=== PATIENT | female | born 1980 | race Two or more races ===

== ENCOUNTER 2018-05-19 16:31 | Inpatient (IN) | payer MEDICAID, MEDICARE ==
[~2018-05-19] VITALS: Ht 172.7 cm; Wt 84.8 kg
[~2018-05-19 16:31] MED LIST: AMLO5TAB10 PO; BUPR150T15 PO; BUPR150T8 PO; CALC667C6 PO; CARV25TA2 PO; CINA30TA2 PO; CLON0.2T PO; DIPH25CA58 PO; DOCU-109 PO; FOLI0.8T3 PO; ONDA8TAB12 PO; ONDA8TAB9 PO; OXYC10TA PO; OXYC1TAB15 PO; OXYC1TAB22 PO; OXYC30TA64 PO; POLY255P11 PO; PRED50TA PO; Polyethylene Glycol 3350 PO; SERT100T PO; SEVE800T9 PO
[2018-05-19] MEDS ORDERED: fentaNYL PF VIAL 100 MCG/2 ML VIAL IV ONE ×2 (17:00→18:15)
[2018-05-19] MEDS ORDERED: ONDANSETRON PF 4 MG/2 ML VIAL. IV ONE (17:00)
--- NOTE | 2018-05-19 17:01 | PHYS DOC ---
Past Medical History Past Medical History: Renal Failure Additional Past Medical Histor: POLYSYCTIC KIDNEY DISEASE, chronic back pain, dialysis Past Surgical History: Cholecystectomy, , Other Additional Past Surgical Histo: DIALYSIS FISTULA R. ARM, BACK Alcohol Use: None Drug Use: Marijuana Adult General Chief Complaint Chief Complaint: FLANK PAIN [facility] HPI Patient is a 37 year old female with history of end-stage renal disease on dialysis Monday presenting today complaining of 9 out of 10 bilateral flank pain that has been going on for week with nausea and vomiting. Patient denies any fever. She states she feels her kidneys are inflamed. She states she has missed dialysis for the last 1 week. She states she is from [facility]. Patient states occasionally she is able to produce urine. Review of Systems Review of Systems Constitutional: Denies fever or chills [] Eyes: Denies change in visual acuity, redness, or eye pain [] HENT: Denies nasal congestion or sore throat [] Respiratory: Denies cough or shortness of breath [] Cardiovascular: No additional information not addressed in HPI [] GI: Reports nausea and vomiting. Denies abdominal pain, bloody stools or diarrhea [] : Reports bilateral flank pain. Denies dysuria or hematuria [] Musculoskeletal: Denies back pain or joint pain [] Integument: Denies rash or skin lesions [] Neurologic: Denies headache, focal weakness or sensory changes [] All other systems were reviewed and found to be within normal limits, except as documented in this note. Current Medications Current Medications Current Medications Medications (Trade) Dose Ordered Sig/Masood Start Time Stop Time Status Last Admin Dose Admin Fentanyl Citrate (Fentanyl 2ml Vial) 50 mcg 1X ONCE 05/19/18 18:15 05/19/18 18:16 DC Ondansetron HCl (Zofran) 4 mg 1X ONCE 05/19/18 17:00 05/19/18 17:01 DC 05/19/18 17:16 4 MG Allergies Allergies Allergies Coded Allergies Type Severity Reaction Last Updated Verified Cephalosporins Allergy Intermediate 02/08/13 Yes cephalexin Allergy Intermediate 04/28/18 Yes iron Allergy Intermediate 02/08/13 Yes tramadol Allergy Intermediate 02/08/13 Yes Physical Exam Physical Exam Constitutional: Well developed, well nourished, no acute distress, non-toxic appearance. [] HENT: Normocephalic, atraumatic, bilateral external ears normal, oropharynx moist, no oral exudates, nose normal. [] Eyes: PERRLA, EOMI, conjunctiva normal, no discharge. [] Neck: Normal range of motion, no tenderness, supple, no stridor. [] Cardiovascular:Heart rate regular rhythm, no murmur [] Lungs & Thorax: Bilateral breath sounds clear to auscultation [] Abdomen: Bowel sounds normal, soft, no tenderness, no masses, no pulsatile masses. [] Skin: Warm, dry, no erythema, no rash. Right upper extremity with dialysis fistula with positive bruit and thrill Back: No tenderness, no CVA tenderness. [] Extremities: No tenderness, no cyanosis, no clubbing, ROM intact, no edema. [] Neurologic: Alert and oriented X 3, normal motor function, normal sensory function, no focal deficits noted. [] Psychologic: Affect normal, judgement normal, mood normal. [] Current Patient Data Vital Signs Vital Signs Date Time Temp Pulse Resp B/P (MAP) Pulse Ox O2 Delivery O2 Flow Rate FiO2 05/19/18 17:15 75 17 172/84 (113) 98 Room Air 05/19/18 16:31 98.2 98.2 Lab Values Laboratory Tests Test 05/19/18 17:00 05/19/18 17:02 White Blood Count 5.5 x10^3/uL (4.0-11.0) Red Blood Count 1.98 x10^6/uL (3.50-5.40) L Hemoglobin 6.2 g/dL (12.0-15.5) *L Hematocrit 18.8 % (36.0-47.0) *L Mean Corpuscular Volume 95 fL (79-100) Mean Corpuscular Hemoglobin 31 pg (25-35) Mean Corpuscular Hemoglobin Concent 33 g/dL (31-37) Red Cell Distribution Width 16.8 % (11.5-14.5) H Platelet Count 127 x10^3/uL (140-400) L Neutrophils (%) (Auto) 69 % (31-73) Lymphocytes (%) (Auto) 19 % (24-48) L Monocytes (%) (Auto) 6 % (0-9) Eosinophils (%) (Auto) 5 % (0-3) H Basophils (%) (Auto) 1 % (0-3) Neutrophils # (Auto) 3.8 x10^3uL (1.8-7.7) Lymphocytes # (Auto) 1.1 x10^3/uL (1.0-4.8) Monocytes # (Auto) 0.3 x10^3/uL (0.0-1.1) Eosinophils # (Auto) 0.3 x10^3/uL (0.0-0.7) Basophils # (Auto) 0.0 x10^3/uL (0.0-0.2) Sodium Level 138 mmol/L (136-145) Potassium Level 5.6 mmol/L (3.5-5.1) H Chloride Level 97 mmol/L (98-107) L Carbon Dioxide Level 22 mmol/L (21-32) Anion Gap 19 (6-14) H Blood Urea Nitrogen 116 mg/dL (7-20) H Creatinine 21.0 mg/dL (0.6-1.0) H Estimated GFR (Cockcroft-Gault) 1.9 BUN/Creatinine Ratio 6 (6-20) Glucose Level 92 mg/dL (70-99) Calcium Level 7.4 mg/dL (8.5-10.1) L Total Bilirubin 0.5 mg/dL (0.2-1.0) Aspartate Amino Transferase (AST) 11 U/L (15-37) L Alanine Aminotransferase (ALT) 7 U/L (14-59) L Alkaline Phosphatase 136 U/L (46-116) H Total Protein 7.6 g/dL (6.4-8.2) Albumin 2.8 g/dL (3.4-5.0) L Albumin/Globulin Ratio 0.6 (1.0-1.7) L Lipase 54 U/L (73-393) L Urine Collection Type Unknown Urine Color Yellow Urine Clarity Cloudy Urine pH 8.0 Urine Specific [place] 1.010 Urine Protein 100 mg/dL (NEG-TRACE) Urine Glucose (UA) 100 mg/dL (NEG) Urine Ketones (Stick) Negative mg/dL (NEG) Urine Blood Large (NEG) Urine Nitrite Negative (NEG) Urine Bilirubin Negative (NEG) Urine Urobilinogen Dipstick 0.2 mg/dL (0.2 mg/dL) Urine Leukocyte Esterase Trace (NEG) Urine RBC >40 /HPF (0-2) Urine WBC 1-4 /HPF (0-4) Urine Squamous Epithelial Cells Many /LPF Urine Bacteria Few /HPF (0-FEW) Laboratory Tests 05/19/18 17:00 Laboratory Tests 05/19/18 17:00 EKG EKG [] Radiology/Procedures Radiology/Procedures [] Course & Med Decision Making Course & Med Decision Making Pertinent Labs and Imaging studies reviewed. (See chart for details) This is a 37-year-old. Presenting to the ED today with bilateral flank pain, nausea and vomiting, symptoms for 1 week. Patient is on dialysis, has missed dialysis for one week. CBC with hemoglobin of 6.2, hematocrit 18.8, CMP with potassium 5.6-EKG pending , BUN 116 and creatinine 21.0. Blood transfusion was ordered. Patient be admitted under Dr. Kurtz Spoke with Dr. Alfonso he requested one unit of blood and stated patient does not need emergency dialysis Dragon Disclaimer Dragon Disclaimer This electronic medical record was generated, in whole or in part, using a voice recognition dictation system. Departure Departure Impression: Primary Impression: ESRD (end stage renal disease) Additional Impressions: Hyperkalemia Anemia Disposition: ADMITTED INPATIENT Condition: STABLE Referrals: NO PCP (PCP) Problem Qualifiers Additional Impressions: Anemia Anemia type: unspecified type Qualified Codes: D64.9 - Anemia, unspecified FAITH HURD APRN May 19, 2018 17:01
[2018-05-19 17:31] LABS: BASO % 1 % (0-3); EOS # 0.3 x10^3/uL (0.0-0.7); EOS % 5 % (0-3); LYMPH # 1.1 x10^3/uL (1.0-4.8); LYMPH % 19 % (24-48); MEAN CORPUSCULAR HEMOGLOBIN 31 pg (25-35); MEAN CORPUSCULAR HGB CONC 33 g/dL (31-37); MEAN CORPUSCULAR VOLUME 95 fL (79-100); MONO # 0.3 x10^3/uL (0.0-1.1); MONO % 6 % (0-9); NEUT # 3.8 x10^3uL (1.8-7.7); NEUT % 69 % (31-73); PLATELET COUNT 127 x10^3/uL (140-400); RED BLOOD COUNT 1.98 x10^6/uL (3.50-5.40); RED CELL DISTRIBUTION WIDTH 16.8 % (11.5-14.5); WHITE BLOOD COUNT 5.5 x10^3/uL (4.0-11.0)
[2018-05-19 17:33] LABS: ALBUMIN 2.8 g/dL (3.4-5.0); ALBUMIN/GLOBULIN RATIO 0.6 (1.0-1.7); CALCIUM 7.4 mg/dL (8.5-10.1); POTASSIUM 5.6 mmol/L (3.5-5.1); TOTAL BILIRUBIN 0.5 mg/dL (0.2-1.0); TOTAL PROTEIN 7.6 g/dL (6.4-8.2)
[2018-05-19 17:36] LABS: GFR 1.9
[2018-05-19 17:49] LABS: HEMATOCRIT 18.8 % (36.0-47.0); HEMOGLOBIN 6.2 g/dL (12.0-15.5)
[2018-05-19] MEDS ORDERED: SODIUM POLYSTYRENE SULFONATE 15 GM/60 ML ORAL.SUSP. PO ONE (18:30)
[2018-05-19 19:00] VITALS: BP 147/82
[2018-05-19 19:05] LABS: BILIRUBIN,URINE NEGATIVE (NEG); CLARITY,URINE CLOUDY; COLOR,URINE YELLOW; NITRITE,URINE NEGATIVE (NEG); PROTEIN,URINE 100 mg/dL (NEG-TRACE); UROBILINOGEN,URINE 0.2 mg/dL (0.2 mg/dL)
--- NOTE | 2018-05-19 19:10 | RAD ---
CT of the abdomen and pelvis without contrast HISTORY: Flank pain worse on right. End-stage renal disease CT scan of the abdomen and pelvis was done without contrast. There is a trace of pleural effusion on each side. There is mild atelectasis in the lung bases. There is a cyst in the liver. There are polycystic kidneys with high and low density cysts in both kidneys. A dominant mass is not definitively identified include. Spleen and adrenal glands are normal. Pancreas is not optimally evaluated without contrast but is not definitively abnormal. Common duct is dilated without change from an old study. The patient had a cholecystectomy. Diffuse edema in the anterior abdominal wall. No bowel obstruction. There is increased stool in the colon with possible fecal impaction the rectum. Uterus and ovaries are normal. Appendix is normal. There is mild wall thickening in the colon, a mild colitis is possible or mild edema from anasarca. There is no small bowel obstruction. Retroperitoneal lymph nodes are more prominent than the old exam, etiology is nonspecific. There is a large calcific mass behind the hip on the right which was not present on the old study, tumoral calcinosis is possible. IMPRESSION: 1. Polycystic kidney disease with multiple high density and low-density cysts in both kidneys, renal mass would be difficult to exclude. 2. Retroperitoneal adenopathy increased since the prior study. 3. Increased stool in colon and rectum with fecal impaction at the rectum. 4. Mild wall thickening in the colon possible mild colitis.. 5. Edema suggesting anasarca in the abdominal wall. 6. Calcified mass behind the right hip. 7. Dilated common duct without change from the old study. Electronically signed by: Trenton Brunner MD (05/19/2018 7:06 PM) [id number]
[2018-05-19 19:13] LABS: SQUAMOUS EPITHELIAL CELL,UR MANY /LPF
[2018-05-19 19:14] LABS: BACTERIA,URINE FEW /HPF (0-FEW); RBC,URINE >40 /HPF (0-2)
[2018-05-19] MEDS ORDERED: ONDANSETRON PF 4 MG/2 ML VIAL. IV PRN (19:45)
[2018-05-19] MEDS ORDERED: ACETAMINOPHEN 325 MG TABLET. PO PRN (19:45)
[2018-05-19] MEDS ORDERED: oxyCODONE/APAP 10/325 1 TAB TABLET PO PRN (21:45)
[2018-05-19] MEDS ORDERED: diphenhydrAMINE HCL 25 MG CAPSULE PO PRN (21:45)
[2018-05-19] MEDS: ONDANSETRON ODT 4 MG TAB.RAPDIS. PO SCH (22:00)
[2018-05-19] MEDS: fentaNYL PF VIAL 100 MCG/2 ML VIAL IV PRN (22:12)
[2018-05-19] MEDS ORDERED: BISACODYL 5 MG TABLET.DR. PO PRN (22:15)
[2018-05-19] MEDS ORDERED: SODIUM PHOSPHATES 19/7GM 133 ML ENEMA. PR PRN (22:15)
[2018-05-19 22:49] VITALS: BP 140/78
--- NOTE | 2018-05-19 22:52 | PDOC1 ---
History and Physical Date of Admission Date of Admission DATE: 05/19/18 TIME: 22:47 Identification/Chief Complaint Chief Complaint back pain, flank pain Source Source: Chart review, Patient History of Present Illness History of Present Illness Ms. Hawkins, is a 37 year old female admit from the ER with acute abd and flank pain, and pain to back. She has a history of end-stage renal disease on dialysis 11/13 bilateral flank pain that has been going on for week with nausea and vomiting. Poor po intake for days, could not take her home dose of oxycodoen, which she says is now 30mg, and her PCP, Dr. Mckinney, has referred her to pain mgmnt. Patient denies any fever. She states she feels her kidneys are inflamed. I reviewed CT results with her and she says she stooled since CT was taken Patient states occasionally she is able to produce urine. NO HD for one week, Past Medical History Cardiovascular: HTN Pulmonary: No pertinent hx GI: No pertinent hx Heme/Onc: No pertinent hx Hepatobiliary: No pertinent hx Renal/: Chronic renal failure Past Surgical History Past Surgical History: No pertinent history Family History Family History: No Significant, Family History Unknown Social History Smoke: No ALCOHOL: none Drugs: None Current Problem List Problem List Problems Medical Problems: (1) Anemia Status: Acute (2) Hyperkalemia Status: Acute Current Medications Current Medications Current Medications Fentanyl Citrate (Fentanyl 2ml Vial) 50 mcg 1X ONCE IV Last administered on at 17:18; Start 05/19/18 at 17:00; Stop 05/19/18 at 17:01; Status DC Ondansetron HCl (Zofran) 4 mg 1X ONCE IV Last administered on 05/19/18at 17:16 ; Start 05/19/18 at 17:00; Stop 05/19/18 at 17:01; Status DC Fentanyl Citrate (Fentanyl 2ml Vial) 50 mcg 1X ONCE IV Last administered on at 20:17; Start 05/19/18 at 18:15; Stop 05/19/18 at 18:16; Status DC Sodium Polystyrene Sulfonate (Kayexalate) 30 gm 1X ONCE PO ; Start 05/19/18 at 18:30; Stop 05/19/18 at 18:31; Status DC Ondansetron HCl (Zofran) 4 mg PRN Q8HRS PRN IV NAUSEA/VOMITING; Start 05/19/18 at 19:45; Stop 05/20/18 at 19:44 Fentanyl Citrate (Fentanyl 2ml Vial) 50 mcg PRN Q1HR PRN IV PAIN Last administered on 05/19/18at 22:12; Start 05/19/18 at 19:45; Stop 05/20/18 at 19:44 Acetaminophen (Tylenol) 650 mg PRN Q4HRS PRN PO FEVER; Start 05/19/18 at 19:45 ; Stop 05/20/18 at 19:44 Amlodipine Besylate (Norvasc) 5 mg BID PO ; Start 05/19/18 at 22:00 Bupropion HCl (Wellbutrin Sr) 150 mg DAILY PO ; Start 05/20/18 at 09:00 Cinacalcet (Sensipar) 30 mg DAILY PO ; Start 05/20/18 at 09:00 Clonidine HCl (Catapres) 0.2 mg BID PO ; Start 05/19/18 at 22:00 Diphenhydramine HCl (Benadryl) 25 mg PRN QHS PRN PO ALLERGIES; Start 05/19/18 at 21:45 Docusate Sodium (Colace) 100 mg DAILY PO ; Start 05/20/18 at 09:00 Oxycodone/ Acetaminophen (Percocet 10/325) 2 tab PRN QID PRN PO SEVERE PAIN; Start 05/19/18 at 21:45; Stop 05/19/18 at 22:31; Status DC Sevelamer Carbonate (Renvela) 800 mg QIDACHS PO ; Start 05/20/18 at 07:30 Carvedilol (Coreg) 25 mg BIDWMEALS PO ; Start 05/19/18 at 22:00 Ondansetron HCl (Zofran Odt) 8 mg Q8HRS PO ; Start 05/19/18 at 22:00 Polyethylene Glycol (miraLAX PACKET) 17 gm PRN DAILY PRN PO CONSTIPATION 1ST CHOICE; Start 05/20/18 at 09:00; Stop 05/20/18 at 09:00; Status DC Polyethylene Glycol (miraLAX PACKET) 17 gm BID PO ; Start 05/20/18 at 09:00 Senna/Docusate Sodium (Senna Plus) 2 tab DAILY PO ; Start 05/20/18 at 09:00 Sodium Monofluorophosphate (Fleet Adult) 133 ml PRN DAILY PRN [place] CONSTIPATION 2ND CHOICE; Start 05/19/18 at 22:15 Bisacodyl (Dulcolax Tab) 5 mg PRN DAILY PRN PO CONSTIPATION 1ST CHOICE; Start 05/19/18 at 22:15 Oxycodone/ Acetaminophen (Percocet 10/325) 1 tab PRN QID PRN PO SEVERE PAIN; Start 05/19/18 at 22:45 Active Scripts Active Percocet 10-325 Mg Tablet (Oxycodone/Acetaminophen) 1 Each Tablet 2 Tab PO QID PRN Oxycodone Hcl Immed.release (Oxycodone Hcl) 10 Mg Tablet 1 Tab PO BID Oxycodone Hcl Immed.release (Oxycodone Hcl) 10 Mg Tablet 1 Tab PO BID Zofran Odt (Ondansetron) 8 Mg Tab.rapdis 1 Tab PO Q8HRS Colace (Docusate Sodium) 100 Mg Capsule 100 Mg PO DAILY Reported Polyethylene Glycol 3350 255 Gm Powder 17 Gm PO PRN Benadryl (Diphenhydramine Hcl) 25 Mg Capsule 1 Cap PO QHS PRN Sensipar (Cinacalcet Hcl) 30 Mg Tablet 1 Tab PO DAILY Zofran (Ondansetron Hcl) 8 Mg Tablet 8 Mg PO PRN Renvela (Sevelamer Carbonate) 800 Mg Tablet 4 Tab PO PRN PRN Wellbutrin Xl (Bupropion Hcl) 150 Mg Tab.er.24h 1 Tab PO DAILY Clonidine Hcl 0.2 Mg Tablet 0.2 Mg PO BID Amlodipine Besylate 5 Mg Tablet 5 Mg PO BID Carvedilol 25 Mg Tablet 25 Mg PO BIDWMEALS Renvela (Sevelamer Carbonate) 800 Mg Tablet 800 Mg PO QID Wellbutrin Sr (Bupropion Hcl) 150 Mg Tablet.er 150 Mg PO DAILY Allergies Allergies: Coded Allergies: Cephalosporins (Verified Allergy, Intermediate, 02/08/13) cephalexin (Verified Allergy, Intermediate, 04/28/18) iron (Verified Allergy, Intermediate, 02/08/13) IV Iron tramadol (Verified Allergy, Intermediate, 02/08/13) ROS General: YES: Chills, Fatigue, Malaise PSYCHOLOGICAL ROS: YES: Irritablity, Sleep disturbances Eyes: No Blurry vision, No Decreased vision, No Double vision, No Dry eyes, No Excessive tearing, No Eye Pain, No Itchy Eyes, No Loss of vision, No Photophobia , No Scotomata, No Uses contacts, No Uses glasses, No Other HEENT: No: Heacaches, Visual Changes, Hearing change, Nasal congestion, Nasal discharge, Oral lesions, Sinus pain, Sore Throat, Epistaxis, Sneezing, Snoring, Tinnitus, Vertigo, Vocal changes, Other ENDOCRINE: No: Breast Changes, Galactorrhea, Hair Pattern Changes, Hot Flashes , Malaise/lethargy, Mood Swings, Palpitations, Polydipsia/polyuria, Skin Changes , Temperature Intolerance, Unexpected Weight Changes, Other Gastrointestinal: Yes Abdominal Pain; No Nausea, No Vomiting, No Diarrhea, No Constipation, No Melena, No Hematochezia, No Other Genitourinary: YES Pain, YES Flank Pain; No Dysuria, No Frequency, No Incontinence, No Hematuria, No Retention, No Discharge, No Urgency, No Other, No , No , No , No , No , No , No Musculoskeletal: Yes Joint Pain; No Gait Disturbance, No Joint Stiffness, No Joint Swelling, No Muscle Pain, No Muscular Weakness, No Pain In:, No Swelling In:, No Other Neurological: Yes Other (explains "like shots of darkness before my eyes" sudden events, today only); No Behavorial Changes, No Bowel/Bladder ControlChng, No Confusion, No Dizziness, No Gait Disturbance, No Headaches, No Impaired Coord/balance, No Memory Loss, No Numbness/Tingling, No Seizures, No Speech Problems, No Tremors, No Visual Changes, No Weakness Skin: No Dry Skin, No Eczema, No Hair Changes, No Lumps, No Mole Changes, No Mottling, No Nail Changes, No Pruritus, No Rash, No Skin Lesion Changes, No Other, No Acne Physical Exam General: Alert, Cooperative, mild distress HEENT: PERRLA, Mucous membr. moist/pink Lungs: Clear to auscultation, Normal air movement Heart: no gallops, no murmurs Abdomen: Soft Rectal Exam: not examined Extremities: No clubbing, No edema Skin: No rashes, No significant lesion Neuro: Normal gait, Normal speech, Normal tone Vitals Vitals Vital Signs Date Time Temp Pulse Resp B/P (MAP) Pulse Ox O2 Delivery O2 Flow Rate FiO2 05/19/18 18:32 70 12 157/72 (100) 97 Room Air 05/19/18 16:31 98.2 98.2 Labs Labs Laboratory Tests Test 05/19/18 17:00 05/19/18 17:02 White Blood Count 5.5 x10^3/uL (4.0-11.0) Red Blood Count 1.98 x10^6/uL (3.50-5.40) Hemoglobin 6.2 g/dL (12.0-15.5) Hematocrit 18.8 % (36.0-47.0) Mean Corpuscular Volume 95 fL (79-100) Mean Corpuscular Hemoglobin 31 pg (25-35) Mean Corpuscular Hemoglobin Concent 33 g/dL (31-37) Red Cell Distribution Width 16.8 % (11.5-14.5) Platelet Count 127 x10^3/uL (140-400) Neutrophils (%) (Auto) 69 % (31-73) Lymphocytes (%) (Auto) 19 % (24-48) Monocytes (%) (Auto) 6 % (0-9) Eosinophils (%) (Auto) 5 % (0-3) Basophils (%) (Auto) 1 % (0-3) Neutrophils # (Auto) 3.8 x10^3uL (1.8-7.7) Lymphocytes # (Auto) 1.1 x10^3/uL (1.0-4.8) Monocytes # (Auto) 0.3 x10^3/uL (0.0-1.1) Eosinophils # (Auto) 0.3 x10^3/uL (0.0-0.7) Basophils # (Auto) 0.0 x10^3/uL (0.0-0.2) Sodium Level 138 mmol/L (136-145) Potassium Level 5.6 mmol/L (3.5-5.1) Chloride Level 97 mmol/L (98-107) Carbon Dioxide Level 22 mmol/L (21-32) Anion Gap 19 (6-14) Blood Urea Nitrogen 116 mg/dL (7-20) Creatinine 21.0 mg/dL (0.6-1.0) Estimated GFR (Cockcroft-Gault) 1.9 BUN/Creatinine Ratio 6 (6-20) Glucose Level 92 mg/dL (70-99) Calcium Level 7.4 mg/dL (8.5-10.1) Total Bilirubin 0.5 mg/dL (0.2-1.0) Aspartate Amino Transf (AST/SGOT) 11 U/L (15-37) Alanine Aminotransferase (ALT/SGPT) 7 U/L (14-59) Alkaline Phosphatase 136 U/L (46-116) Total Protein 7.6 g/dL (6.4-8.2) Albumin 2.8 g/dL (3.4-5.0) Albumin/Globulin Ratio 0.6 (1.0-1.7) Lipase 54 U/L (73-393) Urine Collection Type Unknown Urine Color Yellow Urine Clarity Cloudy Urine pH 8.0 Urine Specific [place] 1.010 Urine Protein 100 mg/dL (NEG-TRACE) Urine Glucose (UA) 100 mg/dL (NEG) Urine Ketones (Stick) Negative mg/dL (NEG) Urine Blood Large (NEG) Urine Nitrite Negative (NEG) Urine Bilirubin Negative (NEG) Urine Urobilinogen Dipstick 0.2 mg/dL (0.2 mg/dL) Urine Leukocyte Esterase Trace (NEG) Urine RBC >40 /HPF (0-2) Urine WBC 1-4 /HPF (0-4) Urine Squamous Epithelial Cells Many /LPF Urine Bacteria Few /HPF (0-FEW) Laboratory Tests Test 05/19/18 17:00 05/19/18 17:02 White Blood Count 5.5 x10^3/uL (4.0-11.0) Red Blood Count 1.98 x10^6/uL (3.50-5.40) Hemoglobin 6.2 g/dL (12.0-15.5) Hematocrit 18.8 % (36.0-47.0) Mean Corpuscular Volume 95 fL (79-100) Mean Corpuscular Hemoglobin 31 pg (25-35) Mean Corpuscular Hemoglobin Concent 33 g/dL (31-37) Red Cell Distribution Width 16.8 % (11.5-14.5) Platelet Count 127 x10^3/uL (140-400) Neutrophils (%) (Auto) 69 % (31-73) Lymphocytes (%) (Auto) 19 % (24-48) Monocytes (%) (Auto) 6 % (0-9) Eosinophils (%) (Auto) 5 % (0-3) Basophils (%) (Auto) 1 % (0-3) Neutrophils # (Auto) 3.8 x10^3uL (1.8-7.7) Lymphocytes # (Auto) 1.1 x10^3/uL (1.0-4.8) Monocytes # (Auto) 0.3 x10^3/uL (0.0-1.1) Eosinophils # (Auto) 0.3 x10^3/uL (0.0-0.7) Basophils # (Auto) 0.0 x10^3/uL (0.0-0.2) Sodium Level 138 mmol/L (136-145) Potassium Level 5.6 mmol/L (3.5-5.1) Chloride Level 97 mmol/L (98-107) Carbon Dioxide Level 22 mmol/L (21-32) Anion Gap 19 (6-14) Blood Urea Nitrogen 116 mg/dL (7-20) Creatinine 21.0 mg/dL (0.6-1.0) Estimated GFR (Cockcroft-Gault) 1.9 BUN/Creatinine Ratio 6 (6-20) Glucose Level 92 mg/dL (70-99) Calcium Level 7.4 mg/dL (8.5-10.1) Total Bilirubin 0.5 mg/dL (0.2-1.0) Aspartate Amino Transf (AST/SGOT) 11 U/L (15-37) Alanine Aminotransferase (ALT/SGPT) 7 U/L (14-59) Alkaline Phosphatase 136 U/L (46-116) Total Protein 7.6 g/dL (6.4-8.2) Albumin 2.8 g/dL (3.4-5.0) Albumin/Globulin Ratio 0.6 (1.0-1.7) Lipase 54 U/L (73-393) Urine Collection Type Unknown Urine Color Yellow Urine Clarity Cloudy Urine pH 8.0 Urine Specific [place] 1.010 Urine Protein 100 mg/dL (NEG-TRACE) Urine Glucose (UA) 100 mg/dL (NEG) Urine Ketones (Stick) Negative mg/dL (NEG) Urine Blood Large (NEG) Urine Nitrite Negative (NEG) Urine Bilirubin Negative (NEG) Urine Urobilinogen Dipstick 0.2 mg/dL (0.2 mg/dL) Urine Leukocyte Esterase Trace (NEG) Urine RBC >40 /HPF (0-2) Urine WBC 1-4 /HPF (0-4) Urine Squamous Epithelial Cells Many /LPF Urine Bacteria Few /HPF (0-FEW) VTE Prophylaxis Ordered VTE Prophylaxis Devices: No VTE Pharmacological Prophylaxi: Yes Assessment/Plan Assessment/Plan acute on chronic back pain uremia, azotemia ESRD, non-compliance > 1 week, has been traveling to [place], mo obesity, BMI 32, w. severe malnutrition narcotic tolerance, polycystic ovary disease constipation with mild colitis that may be secondary PAPI COLON MD May 19, 2018 22:52
[2018-05-19 23:03] VITALS: BP 141/79
[2018-05-19] MEDS: oxyCODONE/APAP 10/325 1 TAB TABLET PO PRN (23:09)
[2018-05-19] MEDS: amLODIPine BESYLATE 5 MG TABLET PO SCH (23:10)
[2018-05-19] MEDS: CARVEDILOL 12.5 MG TABLET. PO SCH (23:11)
[2018-05-19] MEDS: cloNIDine HCL 0.2 MG TABLET PO SCH (23:11)
[2018-05-20] VITALS (10 sets, daily range): BP systolic 105–161; BP diastolic 59–87
[2018-05-20] MEDS: fentaNYL PF VIAL 100 MCG/2 ML VIAL IV PRN ×10 (01:58→23:55)
[2018-05-20 03:36] LABS: CALCIUM 7.2 mg/dL (8.5-10.1); POTASSIUM 5.9 mmol/L (3.5-5.1)
[2018-05-20 03:46] LABS: CREATININE 20.7 mg/dL (0.6-1.0); GFR 1.9
[2018-05-20] MEDS: ONDANSETRON ODT 4 MG TAB.RAPDIS. PO SCH ×3 (06:27→21:44)
[2018-05-20] MEDS: SEVELAMER CARBONATE 800 MG TABLET. PO SCH ×4 (07:30→21:17)
[2018-05-20] MEDS ORDERED: IV NORMAL SALINE 1000ML BAG 1,000 ML IV PRN ×2 (07:55)
[2018-05-20] MEDS ORDERED: diphenhydrAMINE 50 MG/ML VIAL IV PRN (08:00)
[2018-05-20] MEDS ORDERED: DIALYSIS PATIENT. MC PRN ×2 (08:00)
--- NOTE | 2018-05-20 08:35 | NUR ---
Pt transported to dialysis by bed. This RN picked up one unit of PRBCs from Blood Bank and gave to carmen Loyola RN for administration during HD. Blood verified at bedside with KATT Loyola.
[2018-05-20] MEDS ORDERED: POLYETHYLENE GLYCOL 3350 17 GM PACKET. PO PRN (09:00)
[2018-05-20] MEDS ORDERED: INSULIN REGULAR 100 UNIT/ML 3ML VIAL. IV ONE (09:45)
[2018-05-20] MEDS ORDERED: SODIUM POLYSTYRENE SULFONATE 15 GM/60 ML ORAL.SUSP. PO ONE (09:45)
[2018-05-20] MEDS ORDERED: DEXTROSE 50% 25 GM / 50ML DISP.SYRIN. IV ONE (09:45)
[2018-05-20] MEDS ORDERED: CALCIUM GLUCONATE 1,000 MG/10 ML VIAL. IVP ONE (09:45)
[2018-05-20] MEDS: DOCUSATE SODIUM 100 MG CAPSULE. PO SCH (11:08)
[2018-05-20] MEDS: POLYETHYLENE GLYCOL 3350 17 GM PACKET. PO SCH ×2 (11:08→21:00)
[2018-05-20] MEDS: SENNOSIDES/DOCUSATE 8.6/50MG TABLET. PO SCH (11:09)
--- NOTE | 2018-05-20 11:10 | NUR ---
Pt just returned from dialysis, report received from KATT Loyola. Pt refused x1 orders entered by Dr Sadler: insulin, dextrose, calcium gluconate and kayexalate. Pt stated she did not thing these medications were necessary since she just dialysis and she did not want to "over do it."
[2018-05-20] MEDS: cloNIDine HCL 0.2 MG TABLET PO SCH ×2 (11:18→21:18)
[2018-05-20] MEDS: amLODIPine BESYLATE 5 MG TABLET PO SCH ×2 (11:18→21:18)
[2018-05-20] MEDS: buPROPion SR 150 MG TABLET.SA PO SCH (11:18)
[2018-05-20] MEDS: CARVEDILOL 12.5 MG TABLET. PO SCH ×2 (11:18→16:41)
[2018-05-20] MEDS: CINACALCET HCL 30 MG TABLET PO SCH (11:18)
--- NOTE | 2018-05-20 11:29 | PDOC2 ---
CONSULT Date of Consult Date of Consult DATE: 05/20/18 TIME: 11:22 History of Present Illness Reason for Visit: THIS IS A 37 YR OLD ON HD FOR ABOUT 6 YEARS NOW. 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 SHE PRESENTED TO THE ER WITH ABD AND FLANK PAIN. IMAGING IS NEG FOR ANYTHING ACUTE. SHE IS ON OP HD ON MWF BUT HAS NOT BEEN TO HER DIALYSIS UNIT IN OVER A WEEK ON ADMIT SHE IS NOTED TO HAVE A HGB OF 6.2 AND K OF 5.9. SHE ALSO COMPLAINED OF GENERALIZED WEAKNESS. FLANK PAIN WAS SUDDEN WITH SOME RADIATION TO THE FRONT. SHE HAS HAD THESE TYPES OF PAIN IN THE PAST AND MOST LIKELY DUE TO PKD RELATED CYST BURDEN. LABS ARE OTHERWISE C/W ESRD Past Medical History Cardiovascular: HTN Pulmonary: No pertinent hx GI: No pertinent hx, Constipation, Other (PKD) Heme/Onc: Anemia NOS Hepatobiliary: No pertinent hx Psych: Depression Musculoskeletal: low back pain Renal/: Chronic renal failure Endocrine: Hyperparathyroidism Past Surgical History Past Surgical History RIGHT ARM AVF Past Surgical History: No pertinent history Family History Family History: No Significant, Family History Unknown Social History No ALCOHOL: none Drugs: None Current Problem List Problem List Problems Medical Problems: (1) Anemia Status: Acute (2) Hyperkalemia Status: Acute Current Medications Current Medications Current Medications Fentanyl Citrate (Fentanyl 2ml Vial) 50 mcg 1X ONCE IV Last administered on at 17:18; Start 05/19/18 at 17:00; Stop 05/19/18 at 17:01; Status DC Ondansetron HCl (Zofran) 4 mg 1X ONCE IV Last administered on 05/19/18at 17:16 ; Start 05/19/18 at 17:00; Stop 05/19/18 at 17:01; Status DC Fentanyl Citrate (Fentanyl 2ml Vial) 50 mcg 1X ONCE IV Last administered on at 20:17; Start 05/19/18 at 18:15; Stop 05/19/18 at 18:16; Status DC Sodium Polystyrene Sulfonate (Kayexalate) 30 gm 1X ONCE PO ; Start 05/19/18 at 18:30; Stop 05/19/18 at 18:31; Status DC Ondansetron HCl (Zofran) 4 mg PRN Q8HRS PRN IV NAUSEA/VOMITING Last administered on 05/19/18at 23:11; Start 05/19/18 at 19:45; Stop 05/20/18 at 19:44 Fentanyl Citrate (Fentanyl 2ml Vial) 50 mcg PRN Q1HR PRN IV PAIN Last administered on 05/20/18 11:20; Start 05/19/18 at 19:45; Stop 05/20/18 at 19:44 Acetaminophen (Tylenol) 650 mg PRN Q4HRS PRN PO FEVER; Start 05/19/18 at 19:45 ; Stop 05/20/18 at 19:44 Amlodipine Besylate (Norvasc) 5 mg BID PO Last administered on 05/20/18 11:18 ; Start 05/19/18 at 22:00 Bupropion HCl (Wellbutrin Sr) 150 mg DAILY PO Last administered on 05/20/18 11 :18; Start 05/20/18 at 09:00 Cinacalcet (Sensipar) 30 mg DAILY PO Last administered on 05/20/18 11:18; Start 05/20/18 at 09:00 Clonidine HCl (Catapres) 0.2 mg BID PO Last administered on 05/20/18 11:18; Start 05/19/18 at 22:00 Diphenhydramine HCl (Benadryl) 25 mg PRN QHS PRN PO ALLERGIES; Start 05/19/18 at 21:45 Docusate Sodium (Colace) 100 mg DAILY PO ; Start 05/20/18 at 09:00 Oxycodone/ Acetaminophen (Percocet 10/325) 2 tab PRN QID PRN PO SEVERE PAIN; Start 05/19/18 at 21:45; Stop 05/19/18 at 22:31; Status DC Sevelamer Carbonate (Renvela) 800 mg QIDACHS PO Last administered on 05/20/18 11:17; Start 05/20/18 at 07:30 Carvedilol (Coreg) 25 mg BIDWMEALS PO Last administered on 05/20/18 11:18; Start 05/19/18 at 22:00 Ondansetron HCl (Zofran Odt) 8 mg Q8HRS PO Last administered on 05/20/18at 06:27 ; Start 05/19/18 at 22:00 Polyethylene Glycol (miraLAX PACKET) 17 gm PRN DAILY PRN PO CONSTIPATION 1ST CHOICE; Start 05/20/18 at 09:00; Stop 05/20/18 at 09:00; Status DC Polyethylene Glycol (miraLAX PACKET) 17 gm BID PO ; Start 05/20/18 at 09:00 Senna/Docusate Sodium (Senna Plus) 2 tab DAILY PO ; Start 05/20/18 at 09:00 Sodium Monofluorophosphate (Fleet Adult) 133 ml PRN DAILY PRN [place] CONSTIPATION 2ND CHOICE; Start 05/19/18 at 22:15 Bisacodyl (Dulcolax Tab) 5 mg PRN DAILY PRN PO CONSTIPATION 1ST CHOICE; Start 05/19/18 at 22:15 Oxycodone/ Acetaminophen (Percocet 10/325) 1 tab PRN QID PRN PO SEVERE PAIN Last administered on 05/19/18at 23:09; Start 05/19/18 at 22:45 Sodium Chloride 1,000 ml @ 1,000 mls/hr Q1H PRN IV hypotension; Start 05/20/18 at 07:55; Stop 05/20/18 at 13:54 Diphenhydramine HCl (Benadryl) 25 mg 1X PRN PRN IV ITCHING; Start 05/20/18 at 08:00; Stop 05/21/18 at 07:59 Sodium Chloride 1,000 ml @ 400 mls/hr Q2H30M PRN IV PATENCY; Start 05/20/18 at 07:55; Stop 05/20/18 at 19:54 Info (PHARMACY MONITORING -- do not chart) 1 each PRN DAILY PRN MC SEE COMMENTS ; Start 05/20/18 at 08:00 Info (PHARMACY MONITORING -- do not chart) 1 each PRN DAILY PRN MC SEE COMMENTS ; Start 05/20/18 at 08:00; Status UNV Dextrose (Dextrose 50%-Water Syringe) 25 gm 1X ONCE IV ; Start 05/20/18 at 09: 45; Stop 05/20/18 at 09:47; Status DC Insulin Human Regular (HumuLIN R VIAL) 10 unit 1X ONCE IV ; Start 05/20/18 at 09:45; Stop 05/20/18 at 09:47; Status DC Sodium Polystyrene Sulfonate (Kayexalate) 15 gm 1X ONCE PO ; Start 05/20/18 at 09:45; Stop 05/20/18 at 09:47; Status DC Calcium Gluconate (Calcium Gluconate) 1,000 mg 1X ONCE IVP ; Start 05/20/18 at 09:45; Stop 05/20/18 at 09:47; Status DC Active Scripts Active Percocet 10-325 Mg Tablet (Oxycodone/Acetaminophen) 1 Each Tablet 2 Tab PO QID PRN Oxycodone Hcl Immed.release (Oxycodone Hcl) 10 Mg Tablet 1 Tab PO BID Oxycodone Hcl Immed.release (Oxycodone Hcl) 10 Mg Tablet 1 Tab PO BID Zofran Odt (Ondansetron) 8 Mg Tab.rapdis 1 Tab PO Q8HRS Colace (Docusate Sodium) 100 Mg Capsule 100 Mg PO DAILY Reported Polyethylene Glycol 3350 255 Gm Powder 17 Gm PO PRN Benadryl (Diphenhydramine Hcl) 25 Mg Capsule 1 Cap PO QHS PRN Sensipar (Cinacalcet Hcl) 30 Mg Tablet 1 Tab PO DAILY Zofran (Ondansetron Hcl) 8 Mg Tablet 8 Mg PO PRN Renvela (Sevelamer Carbonate) 800 Mg Tablet 4 Tab PO PRN PRN Wellbutrin Xl (Bupropion Hcl) 150 Mg Tab.er.24h 1 Tab PO DAILY Clonidine Hcl 0.2 Mg Tablet 0.2 Mg PO BID Amlodipine Besylate 5 Mg Tablet 5 Mg PO BID Carvedilol 25 Mg Tablet 25 Mg PO BIDWMEALS Renvela (Sevelamer Carbonate) 800 Mg Tablet 800 Mg PO QID Wellbutrin Sr (Bupropion Hcl) 150 Mg Tablet.er 150 Mg PO DAILY Allergies Allergies: Coded Allergies: Cephalosporins (Verified Allergy, Intermediate, 02/08/13) cephalexin (Verified Allergy, Intermediate, 04/28/18) iron (Verified Allergy, Intermediate, 02/08/13) IV Iron tramadol (Verified Allergy, Intermediate, 02/08/13) ROS General: YES: Fatigue, Malaise, Appetite PSYCHOLOGICAL ROS: YES: Anxiety, Depression Eyes: Yes Decreased vision HEENT: YES: [place] ALLERGY AND IMMUNOLOGY: YES: Seasonal Allergies Respiratory: YES: Cough Gastrointestinal: Yes Nausea, Yes Abdominal Pain Genitourinary: YES Other (ANURIA) Musculoskeletal: Yes Joint Stiffness, Yes Muscular Weakness, Yes Other (BACK PAIN) Neurological: Yes Weakness Skin: Yes Dry Skin Physical Exam General: Alert, Oriented X3, Cooperative, No acute distress HEENT: Atraumatic, PERRLA, EOMI, Mucous membr. moist/pink Lungs: Clear to auscultation, Normal air movement Heart: Regular rate, Normal S1, Normal S2 Abdomen: Normal bowel sounds, Soft, No tenderness Extremities: No clubbing, No cyanosis Skin: No breakdown Neuro: Normal speech, Sensation intact, Cranial nerves 3-12 NL Psych/Mental Status: Mental status NL, Mood NL MUSCULOSKELETAL: No joint tenderness, No deformity, No swelling Vitals VITALS Vital Signs Date Time Temp Pulse Resp B/P (MAP) Pulse Ox O2 Delivery O2 Flow Rate FiO2 05/20/18 11:20 Room Air 05/20/18 11:18 65 155/77 05/20/18 09:31 98.0 18 98.0 05/20/18 07:00 97 Labs Labs Laboratory Tests Test 05/19/18 17:00 05/19/18 17:02 05/20/18 03:00 White Blood Count 5.5 x10^3/uL (4.0-11.0) 5.0 x10^3/uL (4.0-11.0) Red Blood Count 1.98 x10^6/uL (3.50-5.40) 2.15 x10^6/uL (3.50-5.40) Hemoglobin 6.2 g/dL (12.0-15.5) 6.8 g/dL (12.0-15.5) Hematocrit 18.8 % (36.0-47.0) 20.3 % (36.0-47.0) Mean Corpuscular Volume 95 fL (79-100) 95 fL (79-100) Mean Corpuscular Hemoglobin 31 pg (25-35) 32 pg (25-35) Mean Corpuscular Hemoglobin Concent 33 g/dL (31-37) 33 g/dL (31-37) Red Cell Distribution Width 16.8 % (11.5-14.5) 16.5 % (11.5-14.5) Platelet Count 127 x10^3/uL (140-400) 123 x10^3/uL (140-400) Neutrophils (%) (Auto) 69 % (31-73) Lymphocytes (%) (Auto) 19 % (24-48) Monocytes (%) (Auto) 6 % (0-9) Eosinophils (%) (Auto) 5 % (0-3) Basophils (%) (Auto) 1 % (0-3) Neutrophils # (Auto) 3.8 x10^3uL (1.8-7.7) Lymphocytes # (Auto) 1.1 x10^3/uL (1.0-4.8) Monocytes # (Auto) 0.3 x10^3/uL (0.0-1.1) Eosinophils # (Auto) 0.3 x10^3/uL (0.0-0.7) Basophils # (Auto) 0.0 x10^3/uL (0.0-0.2) Sodium Level 138 mmol/L (136-145) 137 mmol/L (136-145) Potassium Level 5.6 mmol/L (3.5-5.1) 5.9 mmol/L (3.5-5.1) Chloride Level 97 mmol/L (98-107) 95 mmol/L (98-107) Carbon Dioxide Level 22 mmol/L (21-32) 19 mmol/L (21-32) Anion Gap 19 (6-14) 23 (6-14) Blood Urea Nitrogen 116 mg/dL (7-20) 121 mg/dL (7-20) Creatinine 21.0 mg/dL (0.6-1.0) 20.7 mg/dL (0.6-1.0) Estimated GFR (Cockcroft-Gault) 1.9 1.9 BUN/Creatinine Ratio 6 (6-20) Glucose Level 92 mg/dL (70-99) 155 mg/dL (70-99) Calcium Level 7.4 mg/dL (8.5-10.1) 7.2 mg/dL (8.5-10.1) Total Bilirubin 0.5 mg/dL (0.2-1.0) Aspartate Amino Transf (AST/SGOT) 11 U/L (15-37) Alanine Aminotransferase (ALT/SGPT) 7 U/L (14-59) Alkaline Phosphatase 136 U/L (46-116) Total Protein 7.6 g/dL (6.4-8.2) Albumin 2.8 g/dL (3.4-5.0) Albumin/Globulin Ratio 0.6 (1.0-1.7) Lipase 54 U/L (73-393) Urine Collection Type Unknown Urine Color Yellow Urine Clarity Cloudy Urine pH 8.0 Urine Specific [place] 1.010 Urine Protein 100 mg/dL (NEG-TRACE) Urine Glucose (UA) 100 mg/dL (NEG) Urine Ketones (Stick) Negative mg/dL (NEG) Urine Blood Large (NEG) Urine Nitrite Negative (NEG) Urine Bilirubin Negative (NEG) Urine Urobilinogen Dipstick 0.2 mg/dL (0.2 mg/dL) Urine Leukocyte Esterase Trace (NEG) Urine RBC >40 /HPF (0-2) Urine WBC 1-4 /HPF (0-4) Urine Squamous Epithelial Cells Many /LPF Urine Bacteria Few /HPF (0-FEW) Laboratory Tests Test 05/19/18 17:00 05/19/18 17:02 05/20/18 03:00 White Blood Count 5.5 x10^3/uL (4.0-11.0) 5.0 x10^3/uL (4.0-11.0) Red Blood Count 1.98 x10^6/uL (3.50-5.40) 2.15 x10^6/uL (3.50-5.40) Hemoglobin 6.2 g/dL (12.0-15.5) 6.8 g/dL (12.0-15.5) Hematocrit 18.8 % (36.0-47.0) 20.3 % (36.0-47.0) Mean Corpuscular Volume 95 fL (79-100) 95 fL (79-100) Mean Corpuscular Hemoglobin 31 pg (25-35) 32 pg (25-35) Mean Corpuscular Hemoglobin Concent 33 g/dL (31-37) 33 g/dL (31-37) Red Cell Distribution Width 16.8 % (11.5-14.5) 16.5 % (11.5-14.5) Platelet Count 127 x10^3/uL (140-400) 123 x10^3/uL (140-400) Neutrophils (%) (Auto) 69 % (31-73) Lymphocytes (%) (Auto) 19 % (24-48) Monocytes (%) (Auto) 6 % (0-9) Eosinophils (%) (Auto) 5 % (0-3) Basophils (%) (Auto) 1 % (0-3) Neutrophils # (Auto) 3.8 x10^3uL (1.8-7.7) Lymphocytes # (Auto) 1.1 x10^3/uL (1.0-4.8) Monocytes # (Auto) 0.3 x10^3/uL (0.0-1.1) Eosinophils # (Auto) 0.3 x10^3/uL (0.0-0.7) Basophils # (Auto) 0.0 x10^3/uL (0.0-0.2) Sodium Level 138 mmol/L (136-145) 137 mmol/L (136-145) Potassium Level 5.6 mmol/L (3.5-5.1) 5.9 mmol/L (3.5-5.1) Chloride Level 97 mmol/L (98-107) 95 mmol/L (98-107) Carbon Dioxide Level 22 mmol/L (21-32) 19 mmol/L (21-32) Anion Gap 19 (6-14) 23 (6-14) Blood Urea Nitrogen 116 mg/dL (7-20) 121 mg/dL (7-20) Creatinine 21.0 mg/dL (0.6-1.0) 20.7 mg/dL (0.6-1.0) Estimated GFR (Cockcroft-Gault) 1.9 1.9 BUN/Creatinine Ratio 6 (6-20) Glucose Level 92 mg/dL (70-99) 155 mg/dL (70-99) Calcium Level 7.4 mg/dL (8.5-10.1) 7.2 mg/dL (8.5-10.1) Total Bilirubin 0.5 mg/dL (0.2-1.0) Aspartate Amino Transf (AST/SGOT) 11 U/L (15-37) Alanine Aminotransferase (ALT/SGPT) 7 U/L (14-59) Alkaline Phosphatase 136 U/L (46-116) Total Protein 7.6 g/dL (6.4-8.2) Albumin 2.8 g/dL (3.4-5.0) Albumin/Globulin Ratio 0.6 (1.0-1.7) Lipase 54 U/L (73-393) Urine Collection Type Unknown Urine Color Yellow Urine Clarity Cloudy Urine pH 8.0 Urine Specific [place] 1.010 Urine Protein 100 mg/dL (NEG-TRACE) Urine Glucose (UA) 100 mg/dL (NEG) Urine Ketones (Stick) Negative mg/dL (NEG) Urine Blood Large (NEG) Urine Nitrite Negative (NEG) Urine Bilirubin Negative (NEG) Urine Urobilinogen Dipstick 0.2 mg/dL (0.2 mg/dL) Urine Leukocyte Esterase Trace (NEG) Urine RBC >40 /HPF (0-2) Urine WBC 1-4 /HPF (0-4) Urine Squamous Epithelial Cells Many /LPF Urine Bacteria Few /HPF (0-FEW) Assessment/Plan Assessment/Plan IMP ANEMIA NON COMPLIANCE ESRD-MWF ADPKD HX ABD AND FLANK PAIN PLAN HD TODAY UF TO DW LEYDAP PRBC TODAY ENC COMPLIANCE PAIN MANAGEMENT FLANK AND ABD PAIN MOST LIKELY DUE TO PKD RELATED CYST RUPTURE WILL FOLLOW SUZAN STEPHENSON MD May 20, 2018 11:29
[2018-05-20] MEDS ORDERED: DARBEPOETIN ALFA 60 MCG/0.3 ML DISP.SYRIN. SQ ONE (12:00)
[2018-05-20] MEDS ORDERED: oxyCODONE/APAP 5/325 1 TAB TABLET PO PRN (12:15)
--- NOTE | 2018-05-20 12:15 | PDOC ---
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 Decreased by mouth intake Bilateral flank pain-no UTI Microscopic hematuria History of Present Illness History of Present Illness BIlateral flank pains continues NO uTI on UA MAkes some urine Moved BM PAin Likely from the PKD JUst had hD today monday - will run again tmr AM PLAN:PO and iV pain med HD tmr RENal diet HOme when cleared by renal BMP tmr - likely K down now post HD Vitals Vitals Vital Signs Date Time Temp Pulse Resp B/P (MAP) Pulse Ox O2 Delivery O2 Flow Rate FiO2 05/20/18 11:50 Room Air 05/20/18 11:18 65 155/77 05/20/18 11:00 97.9 16 99 97.9 Physical Exam General: Alert, Oriented X3, Cooperative, No acute distress Heart: Regular rate, Normal S1, Normal S2 Lungs: Clear, Wheezing Abdomen: Normal bowel sounds, Soft, No tenderness Extremities: No clubbing, No cyanosis Skin: No breakdown Labs LABS Laboratory Tests Test 05/19/18 17:00 05/19/18 17:02 05/20/18 03:00 White Blood Count 5.5 x10^3/uL (4.0-11.0) 5.0 x10^3/uL (4.0-11.0) Red Blood Count 1.98 x10^6/uL (3.50-5.40) 2.15 x10^6/uL (3.50-5.40) Hemoglobin 6.2 g/dL (12.0-15.5) 6.8 g/dL (12.0-15.5) Hematocrit 18.8 % (36.0-47.0) 20.3 % (36.0-47.0) Mean Corpuscular Volume 95 fL (79-100) 95 fL (79-100) Mean Corpuscular Hemoglobin 31 pg (25-35) 32 pg (25-35) Mean Corpuscular Hemoglobin Concent 33 g/dL (31-37) 33 g/dL (31-37) Red Cell Distribution Width 16.8 % (11.5-14.5) 16.5 % (11.5-14.5) Platelet Count 127 x10^3/uL (140-400) 123 x10^3/uL (140-400) Neutrophils (%) (Auto) 69 % (31-73) Lymphocytes (%) (Auto) 19 % (24-48) Monocytes (%) (Auto) 6 % (0-9) Eosinophils (%) (Auto) 5 % (0-3) Basophils (%) (Auto) 1 % (0-3) Neutrophils # (Auto) 3.8 x10^3uL (1.8-7.7) Lymphocytes # (Auto) 1.1 x10^3/uL (1.0-4.8) Monocytes # (Auto) 0.3 x10^3/uL (0.0-1.1) Eosinophils # (Auto) 0.3 x10^3/uL (0.0-0.7) Basophils # (Auto) 0.0 x10^3/uL (0.0-0.2) Sodium Level 138 mmol/L (136-145) 137 mmol/L (136-145) Potassium Level 5.6 mmol/L (3.5-5.1) 5.9 mmol/L (3.5-5.1) Chloride Level 97 mmol/L (98-107) 95 mmol/L (98-107) Carbon Dioxide Level 22 mmol/L (21-32) 19 mmol/L (21-32) Anion Gap 19 (6-14) 23 (6-14) Blood Urea Nitrogen 116 mg/dL (7-20) 121 mg/dL (7-20) Creatinine 21.0 mg/dL (0.6-1.0) 20.7 mg/dL (0.6-1.0) Estimated GFR (Cockcroft-Gault) 1.9 1.9 BUN/Creatinine Ratio 6 (6-20) Glucose Level 92 mg/dL (70-99) 155 mg/dL (70-99) Calcium Level 7.4 mg/dL (8.5-10.1) 7.2 mg/dL (8.5-10.1) Total Bilirubin 0.5 mg/dL (0.2-1.0) Aspartate Amino Transf (AST/SGOT) 11 U/L (15-37) Alanine Aminotransferase (ALT/SGPT) 7 U/L (14-59) Alkaline Phosphatase 136 U/L (46-116) Total Protein 7.6 g/dL (6.4-8.2) Albumin 2.8 g/dL (3.4-5.0) Albumin/Globulin Ratio 0.6 (1.0-1.7) Lipase 54 U/L (73-393) Urine Collection Type Unknown Urine Color Yellow Urine Clarity Cloudy Urine pH 8.0 Urine Specific [place] 1.010 Urine Protein 100 mg/dL (NEG-TRACE) Urine Glucose (UA) 100 mg/dL (NEG) Urine Ketones (Stick) Negative mg/dL (NEG) Urine Blood Large (NEG) Urine Nitrite Negative (NEG) Urine Bilirubin Negative (NEG) Urine Urobilinogen Dipstick 0.2 mg/dL (0.2 mg/dL) Urine Leukocyte Esterase Trace (NEG) Urine RBC >40 /HPF (0-2) Urine WBC 1-4 /HPF (0-4) Urine Squamous Epithelial Cells Many /LPF Urine Bacteria Few /HPF (0-FEW) Review of Systems Review of Systems BILateral flank pains otherwise rest of ROS 14 point negative Assessment and Plan Assessmemt and Plan Problems Medical Problems: (1) Anemia Status: Acute (2) Hyperkalemia Status: Acute Comment Review of Relevant I have reviewed the following items grey (where applicable) has been applied. Labs Laboratory Tests Test 05/19/18 17:00 05/19/18 17:02 05/20/18 03:00 White Blood Count 5.5 x10^3/uL (4.0-11.0) 5.0 x10^3/uL (4.0-11.0) Red Blood Count 1.98 x10^6/uL (3.50-5.40) 2.15 x10^6/uL (3.50-5.40) Hemoglobin 6.2 g/dL (12.0-15.5) 6.8 g/dL (12.0-15.5) Hematocrit 18.8 % (36.0-47.0) 20.3 % (36.0-47.0) Mean Corpuscular Volume 95 fL (79-100) 95 fL (79-100) Mean Corpuscular Hemoglobin 31 pg (25-35) 32 pg (25-35) Mean Corpuscular Hemoglobin Concent 33 g/dL (31-37) 33 g/dL (31-37) Red Cell Distribution Width 16.8 % (11.5-14.5) 16.5 % (11.5-14.5) Platelet Count 127 x10^3/uL (140-400) 123 x10^3/uL (140-400) Neutrophils (%) (Auto) 69 % (31-73) Lymphocytes (%) (Auto) 19 % (24-48) Monocytes (%) (Auto) 6 % (0-9) Eosinophils (%) (Auto) 5 % (0-3) Basophils (%) (Auto) 1 % (0-3) Neutrophils # (Auto) 3.8 x10^3uL (1.8-7.7) Lymphocytes # (Auto) 1.1 x10^3/uL (1.0-4.8) Monocytes # (Auto) 0.3 x10^3/uL (0.0-1.1) Eosinophils # (Auto) 0.3 x10^3/uL (0.0-0.7) Basophils # (Auto) 0.0 x10^3/uL (0.0-0.2) Sodium Level 138 mmol/L (136-145) 137 mmol/L (136-145) Potassium Level 5.6 mmol/L (3.5-5.1) 5.9 mmol/L (3.5-5.1) Chloride Level 97 mmol/L (98-107) 95 mmol/L (98-107) Carbon Dioxide Level 22 mmol/L (21-32) 19 mmol/L (21-32) Anion Gap 19 (6-14) 23 (6-14) Blood Urea Nitrogen 116 mg/dL (7-20) 121 mg/dL (7-20) Creatinine 21.0 mg/dL (0.6-1.0) 20.7 mg/dL (0.6-1.0) Estimated GFR (Cockcroft-Gault) 1.9 1.9 BUN/Creatinine Ratio 6 (6-20) Glucose Level 92 mg/dL (70-99) 155 mg/dL (70-99) Calcium Level 7.4 mg/dL (8.5-10.1) 7.2 mg/dL (8.5-10.1) Total Bilirubin 0.5 mg/dL (0.2-1.0) Aspartate Amino Transf (AST/SGOT) 11 U/L (15-37) Alanine Aminotransferase (ALT/SGPT) 7 U/L (14-59) Alkaline Phosphatase 136 U/L (46-116) Total Protein 7.6 g/dL (6.4-8.2) Albumin 2.8 g/dL (3.4-5.0) Albumin/Globulin Ratio 0.6 (1.0-1.7) Lipase 54 U/L (73-393) Urine Collection Type Unknown Urine Color Yellow Urine Clarity Cloudy Urine pH 8.0 Urine Specific [place] 1.010 Urine Protein 100 mg/dL (NEG-TRACE) Urine Glucose (UA) 100 mg/dL (NEG) Urine Ketones (Stick) Negative mg/dL (NEG) Urine Blood Large (NEG) Urine Nitrite Negative (NEG) Urine Bilirubin Negative (NEG) Urine Urobilinogen Dipstick 0.2 mg/dL (0.2 mg/dL) Urine Leukocyte Esterase Trace (NEG) Urine RBC >40 /HPF (0-2) Urine WBC 1-4 /HPF (0-4) Urine Squamous Epithelial Cells Many /LPF Urine Bacteria Few /HPF (0-FEW) Laboratory Tests Test 05/19/18 17:00 05/19/18 17:02 05/20/18 03:00 White Blood Count 5.5 x10^3/uL (4.0-11.0) 5.0 x10^3/uL (4.0-11.0) Red Blood Count 1.98 x10^6/uL (3.50-5.40) 2.15 x10^6/uL (3.50-5.40) Hemoglobin 6.2 g/dL (12.0-15.5) 6.8 g/dL (12.0-15.5) Hematocrit 18.8 % (36.0-47.0) 20.3 % (36.0-47.0) Mean Corpuscular Volume 95 fL (79-100) 95 fL (79-100) Mean Corpuscular Hemoglobin 31 pg (25-35) 32 pg (25-35) Mean Corpuscular Hemoglobin Concent 33 g/dL (31-37) 33 g/dL (31-37) Red Cell Distribution Width 16.8 % (11.5-14.5) 16.5 % (11.5-14.5) Platelet Count 127 x10^3/uL (140-400) 123 x10^3/uL (140-400) Neutrophils (%) (Auto) 69 % (31-73) Lymphocytes (%) (Auto) 19 % (24-48) Monocytes (%) (Auto) 6 % (0-9) Eosinophils (%) (Auto) 5 % (0-3) Basophils (%) (Auto) 1 % (0-3) Neutrophils # (Auto) 3.8 x10^3uL (1.8-7.7) Lymphocytes # (Auto) 1.1 x10^3/uL (1.0-4.8) Monocytes # (Auto) 0.3 x10^3/uL (0.0-1.1) Eosinophils # (Auto) 0.3 x10^3/uL (0.0-0.7) Basophils # (Auto) 0.0 x10^3/uL (0.0-0.2) Sodium Level 138 mmol/L (136-145) 137 mmol/L (136-145) Potassium Level 5.6 mmol/L (3.5-5.1) 5.9 mmol/L (3.5-5.1) Chloride Level 97 mmol/L (98-107) 95 mmol/L (98-107) Carbon Dioxide Level 22 mmol/L (21-32) 19 mmol/L (21-32) Anion Gap 19 (6-14) 23 (6-14) Blood Urea Nitrogen 116 mg/dL (7-20) 121 mg/dL (7-20) Creatinine 21.0 mg/dL (0.6-1.0) 20.7 mg/dL (0.6-1.0) Estimated GFR (Cockcroft-Gault) 1.9 1.9 BUN/Creatinine Ratio 6 (6-20) Glucose Level 92 mg/dL (70-99) 155 mg/dL (70-99) Calcium Level 7.4 mg/dL (8.5-10.1) 7.2 mg/dL (8.5-10.1) Total Bilirubin 0.5 mg/dL (0.2-1.0) Aspartate Amino Transf (AST/SGOT) 11 U/L (15-37) Alanine Aminotransferase (ALT/SGPT) 7 U/L (14-59) Alkaline Phosphatase 136 U/L (46-116) Total Protein 7.6 g/dL (6.4-8.2) Albumin 2.8 g/dL (3.4-5.0) Albumin/Globulin Ratio 0.6 (1.0-1.7) Lipase 54 U/L (73-393) Urine Collection Type Unknown Urine Color Yellow Urine Clarity Cloudy Urine pH 8.0 Urine Specific [place] 1.010 Urine Protein 100 mg/dL (NEG-TRACE) Urine Glucose (UA) 100 mg/dL (NEG) Urine Ketones (Stick) Negative mg/dL (NEG) Urine Blood Large (NEG) Urine Nitrite Negative (NEG) Urine Bilirubin Negative (NEG) Urine Urobilinogen Dipstick 0.2 mg/dL (0.2 mg/dL) Urine Leukocyte Esterase Trace (NEG) Urine RBC >40 /HPF (0-2) Urine WBC 1-4 /HPF (0-4) Urine Squamous Epithelial Cells Many /LPF Urine Bacteria Few /HPF (0-FEW) Medications Current Medications Fentanyl Citrate (Fentanyl 2ml Vial) 50 mcg 1X ONCE IV Last administered on at 17:18; Start 05/19/18 at 17:00; Stop 05/19/18 at 17:01; Status DC Ondansetron HCl (Zofran) 4 mg 1X ONCE IV Last administered on 05/19/18at 17:16 ; Start 05/19/18 at 17:00; Stop 05/19/18 at 17:01; Status DC Fentanyl Citrate (Fentanyl 2ml Vial) 50 mcg 1X ONCE IV Last administered on at 20:17; Start 05/19/18 at 18:15; Stop 05/19/18 at 18:16; Status DC Sodium Polystyrene Sulfonate (Kayexalate) 30 gm 1X ONCE PO ; Start 05/19/18 at 18:30; Stop 05/19/18 at 18:31; Status DC Ondansetron HCl (Zofran) 4 mg PRN Q8HRS PRN IV NAUSEA/VOMITING Last administered on 05/19/18at 23:11; Start 05/19/18 at 19:45; Stop 05/20/18 at 19:44 Fentanyl Citrate (Fentanyl 2ml Vial) 50 mcg PRN Q1HR PRN IV PAIN Last administered on 05/20/18at 11:20; Start 05/19/18 at 19:45; Stop 05/20/18 at 19:44 Acetaminophen (Tylenol) 650 mg PRN Q4HRS PRN PO FEVER; Start 05/19/18 at 19:45 ; Stop 05/20/18 at 19:44 Amlodipine Besylate (Norvasc) 5 mg BID PO Last administered on 05/20/18at 11:18 ; Start 05/19/18 at 22:00 Bupropion HCl (Wellbutrin Sr) 150 mg DAILY PO Last administered on 05/20/18 11 :18; Start 05/20/18 at 09:00 Cinacalcet (Sensipar) 30 mg DAILY PO Last administered on 05/20/18 11:18; Start 05/20/18 at 09:00 Clonidine HCl (Catapres) 0.2 mg BID PO Last administered on 05/20/18at 11:18; Start 05/19/18 at 22:00 Diphenhydramine HCl (Benadryl) 25 mg PRN QHS PRN PO ALLERGIES; Start 05/19/18 at 21:45 Docusate Sodium (Colace) 100 mg DAILY PO ; Start 05/20/18 at 09:00 Oxycodone/ Acetaminophen (Percocet 10/325) 2 tab PRN QID PRN PO SEVERE PAIN; Start 05/19/18 at 21:45; Stop 05/19/18 at 22:31; Status DC Sevelamer Carbonate (Renvela) 800 mg QIDACHS PO Last administered on 05/20/18at 11:17; Start 05/20/18 at 07:30 Carvedilol (Coreg) 25 mg BIDWMEALS PO Last administered on 05/20/18at 11:18; Start 05/19/18 at 22:00 Ondansetron HCl (Zofran Odt) 8 mg Q8HRS PO Last administered on 05/20/18at 06:27 ; Start 05/19/18 at 22:00 Polyethylene Glycol (miraLAX PACKET) 17 gm PRN DAILY PRN PO CONSTIPATION 1ST CHOICE; Start 05/20/18 at 09:00; Stop 05/20/18 at 09:00; Status DC Polyethylene Glycol (miraLAX PACKET) 17 gm BID PO ; Start 05/20/18 at 09:00 Senna/Docusate Sodium (Senna Plus) 2 tab DAILY PO ; Start 05/20/18 at 09:00 Sodium Monofluorophosphate (Fleet Adult) 133 ml PRN DAILY PRN RI CONSTIPATION 2ND CHOICE; Start 05/19/18 at 22:15 Bisacodyl (Dulcolax Tab) 5 mg PRN DAILY PRN PO CONSTIPATION 1ST CHOICE; Start 05/19/18 at 22:15 Oxycodone/ Acetaminophen (Percocet 10/325) 1 tab PRN QID PRN PO SEVERE PAIN Last administered on 05/19/18at 23:09; Start 05/19/18 at 22:45 Sodium Chloride 1,000 ml @ 1,000 mls/hr Q1H PRN IV hypotension; Start 05/20/18 at 07:55; Stop 05/20/18 at 13:54 Diphenhydramine HCl (Benadryl) 25 mg 1X PRN PRN IV ITCHING; Start 05/20/18 at 08:00; Stop 05/21/18 at 07:59 Sodium Chloride 1,000 ml @ 400 mls/hr Q2H30M PRN IV PATENCY; Start 05/20/18 at 07:55; Stop 05/20/18 at 19:54 Info (PHARMACY MONITORING -- do not chart) 1 each PRN DAILY PRN MC SEE COMMENTS ; Start 05/20/18 at 08:00 Info (PHARMACY MONITORING -- do not chart) 1 each PRN DAILY PRN MC SEE COMMENTS ; Start 05/20/18 at 08:00; Status UNV Dextrose (Dextrose 50%-Water Syringe) 25 gm 1X ONCE IV ; Start 05/20/18 at 09: 45; Stop 05/20/18 at 09:47; Status DC Insulin Human Regular (HumuLIN R VIAL) 10 unit 1X ONCE IV ; Start 05/20/18 at 09:45; Stop 05/20/18 at 09:47; Status DC Sodium Polystyrene Sulfonate (Kayexalate) 15 gm 1X ONCE PO ; Start 05/20/18 at 09:45; Stop 05/20/18 at 09:47; Status DC Calcium Gluconate (Calcium Gluconate) 1,000 mg 1X ONCE IVP ; Start 05/20/18 at 09:45; Stop 05/20/18 at 09:47; Status DC Darbepoetin Howard (Aranesp) 60 mcg 1X ONCE SQ ; Start 05/20/18 at 12:00; Stop at 12:01; Status DC Darbepoetin [place] (Aranesp) 60 mcg WEEKLYHS SQ ; Start 05/27/18 at 21:00 Active Scripts Active Percocet 10-325 Mg Tablet (Oxycodone/Acetaminophen) 1 Each Tablet 2 Tab PO QID PRN Oxycodone Hcl Immed.release (Oxycodone Hcl) 10 Mg Tablet 1 Tab PO BID Oxycodone Hcl Immed.release (Oxycodone Hcl) 10 Mg Tablet 1 Tab PO BID Zofran Odt (Ondansetron) 8 Mg Tab.rapdis 1 Tab PO Q8HRS Colace (Docusate Sodium) 100 Mg Capsule 100 Mg PO DAILY Reported Polyethylene Glycol 3350 255 Gm Powder 17 Gm PO PRN Benadryl (Diphenhydramine Hcl) 25 Mg Capsule 1 Cap PO QHS PRN Sensipar (Cinacalcet Hcl) 30 Mg Tablet 1 Tab PO DAILY Zofran (Ondansetron Hcl) 8 Mg Tablet 8 Mg PO PRN Renvela (Sevelamer Carbonate) 800 Mg Tablet 4 Tab PO PRN PRN Wellbutrin Xl (Bupropion Hcl) 150 Mg Tab.er.24h 1 Tab PO DAILY Clonidine Hcl 0.2 Mg Tablet 0.2 Mg PO BID Amlodipine Besylate 5 Mg Tablet 5 Mg PO BID Carvedilol 25 Mg Tablet 25 Mg PO BIDWMEALS Renvela (Sevelamer Carbonate) 800 Mg Tablet 800 Mg PO QID Wellbutrin Sr (Bupropion Hcl) 150 Mg Tablet.er 150 Mg PO DAILY Vitals/I & O Vital Sign - Last 24 Hours 05/19/18 05/19/18 05/19/18 05/19/18 16:31 17:15 18:32 19:00 Temp 98.2 98.1 98.2 98.1 Pulse 81 75 70 69 Resp 20 17 12 18 B/P (MAP) 163/80 (107) 172/84 (113) 157/72 (100) 147/82 (103) Pulse Ox 98 98 97 99 O2 Delivery Room Air Room Air Room Air Room Air 3/1605/19/18 05/19/18 05/19/18 20:00 22:49 23:03 23:10 Temp 98.2 97.8 98.2 97.8 Pulse 72 68 68 Resp 18 18 B/P (MAP) 140/78 141/79 141/79 O2 Delivery Room Air 05/19/18 05/19/18 05/20/18 05/20/18 23:11 23:11 00:03 01:03 Temp 97.4 98.4 97.4 98.4 Pulse 68 68 69 68 Resp 18 18 B/P (MAP) 141/79 141/79 132/77 140/78 05/20/18 05/20/18 05/20/18 05/20/18 01:56 03:00 07:00 07:35 Temp 98.2 98.2 97.8 98.2 98.2 97.8 Pulse 72 61 61 Resp 18 18 16 B/P (MAP) 136/77 107/59 (75) 105/69 (81) Pulse Ox 98 97 O2 Delivery Room Air Room Air Room Air 05/20/18 05/20/18 05/20/18 05/20/18 08:06 09:31 11:00 11:18 Temp 98.0 97.9 98.0 97.9 Pulse 59 65 65 Resp 18 16 B/P (MAP) 129/74 155/77 (103) 155/77 Pulse Ox 99 O2 Delivery Room Air Room Air 05/20/18 05/20/18 05/20/18 05/20/18 11:18 11:18 11:20 11:50 Pulse 65 65 B/P (MAP) 155/77 155/77 O2 Delivery Room Air Room Air Intake and Output 05/19/18 05/19/18 05/20/18 14:59 22:59 06:59 Intake Total 120 ml 200 ml Balance 120 ml 200 ml STEPHEN CASTILLO MD May 20, 2018 12:15
[2018-05-20] MEDS: oxyCODONE/APAP 10/325 1 TAB TABLET PO PRN ×2 (12:40→18:18)
--- NOTE | 2018-05-20 13:03 | EKG ---
[facility] [address] [place] [address] Test Date: 2018-05-19 Test Time: 16:39:01 Pat Name: ARY GILES Department: Room: 422 1 Gender: Female Copy Operator: : 1980 Requested By: FAITH HURD Order Number: [id number] Reading MD: Jono Maria MD Measurements Intervals [place] Rate: 75 P: 17 OR: 122 QRS: 9 QRSD: 100 T: 49 QT: 438 QTc: 492 Interpretive Statements SINUS RHYTHM Electronically Signed On 05-24-2018 15:03:07 CDT by Jono Maria MD
[2018-05-20 13:11] LABS: BASO % 1 % (0-3); EOS # 0.2 x10^3/uL (0.0-0.7); EOS % 5 % (0-3); LYMPH % 20 % (24-48); MEAN CORPUSCULAR HEMOGLOBIN 33 pg (25-35); MEAN CORPUSCULAR HGB CONC 34 g/dL (31-37); MEAN CORPUSCULAR VOLUME 96 fL (79-100); MONO # 0.3 x10^3/uL (0.0-1.1); MONO % 7 % (0-9); NEUT # 3.3 x10^3uL (1.8-7.7); NEUT % 68 % (31-73); PLATELET COUNT 123 x10^3/uL (140-400); RED BLOOD COUNT 2.13 x10^6/uL (3.50-5.40); RED CELL DISTRIBUTION WIDTH 16.5 % (11.5-14.5); WHITE BLOOD COUNT 4.9 x10^3/uL (4.0-11.0)
[2018-05-20 13:16] LABS: HEMATOCRIT 20.4 % (36.0-47.0); HEMOGLOBIN 6.9 g/dL (12.0-15.5)
--- NOTE | 2018-05-20 21:30 | NUR ---
Patient was found outside smoking by security. RN reminded patient that leaving the unit and smoking is not allowed. RN will continue to monitor.
[2018-05-21 03:00] VITALS: BP 135/78
[2018-05-21 03:55] LABS: HEMATOCRIT 22.7 % (36.0-47.0); HEMOGLOBIN 7.7 g/dL (12.0-15.5); RED BLOOD COUNT 2.46 x10^6/uL (3.50-5.40); RED CELL DISTRIBUTION WIDTH 17.1 % (11.5-14.5); WHITE BLOOD COUNT 4.3 x10^3/uL (4.0-11.0)
[2018-05-21] MEDS: fentaNYL PF VIAL 100 MCG/2 ML VIAL IV PRN ×4 (03:56→13:56)
[2018-05-21 04:05] LABS: CALCIUM 7.8 mg/dL (8.5-10.1); CREATININE 14.2 mg/dL (0.6-1.0); GFR 2.9; POTASSIUM 4.6 mmol/L (3.5-5.1)
[2018-05-21] MEDS: ONDANSETRON ODT 4 MG TAB.RAPDIS. PO SCH ×2 (06:00→13:55)
[2018-05-21 07:00] VITALS: BP 143/71
[2018-05-21] MEDS ORDERED: IV NORMAL SALINE 1000ML BAG 1,000 ML IV PRN ×2 (08:12)
[2018-05-21] MEDS ORDERED: DIALYSIS PATIENT. MC PRN (08:15)
[2018-05-21] MEDS ORDERED: diphenhydrAMINE 50 MG/ML VIAL IV PRN ×2 (08:15)
[2018-05-21] MEDS: POLYETHYLENE GLYCOL 3350 17 GM PACKET. PO SCH (09:00)
--- NOTE | 2018-05-21 10:50 | PDOC ---
SUBJECTIVE ROS Seen on HD , tolerating well, No complaints OBJECTIVE Vital Signs Vital Signs Date Time Temp Pulse Resp B/P (MAP) Pulse Ox O2 Delivery O2 Flow Rate FiO2 05/21/18 09:28 94 Room Air 05/21/18 07:00 98.1 81 14 143/71 (95) 98.1 I & 0 Intake and Output 05/21/18 06:59 Intake Total 2 ml Balance 2 ml Blood Product IV Normal Saline Flush 2 ml # Voids 5 # Bowel Movements 1 PHYSICAL EXAM Physical Exam General: No acute distress Heart: Regular rate, Normal S1, Normal S2 Lungs: Clear, Wheezing Abdomen: Soft, No tenderness Extremities: No edema Skin: No rash - No [place] DIAGNOSIS/ASSESSMENT Assessment & Plan ESRD- On HD MWF Seen on HD, tolerating well Continue as Ordered, Jefe case consultant Non compliance- misses weeks at at time Anemia- S/P PRBC Aranesp ADPKD Hx COMMENT/RELEVANT DATA Meds Current Medications Medications (Trade) Dose Ordered Sig/Masood Start Time Stop Time Status Last Admin Dose Admin Acetaminophen (Tylenol) 650 mg PRN Q4HRS PRN 05/19/18 19:45 05/20/18 19:44 DC Amlodipine Besylate (Norvasc) 5 mg BID 05/19/18 22:00 05/20/18 21:18 5 MG Bisacodyl (Dulcolax Tab) 5 mg PRN DAILY PRN 05/19/18 22:15 Bupropion HCl (Wellbutrin Sr) 150 mg DAILY 05/20/18 09:00 05/20/18 11:18 150 MG Calcium Gluconate (Calcium Gluconate) 1,000 mg 1X ONCE 05/20/18 09:45 05/20/18 09:47 DC Carvedilol (Coreg) 25 mg BIDWMEALS 05/19/18 22:00 05/20/18 16:41 25 MG Cinacalcet (Sensipar) 30 mg DAILY 05/20/18 09:00 05/20/18 11:18 30 MG Clonidine HCl (Catapres) 0.2 mg BID 05/19/18 22:00 05/20/18 21:18 0.2 MG Darbepoetin [place] (Aranesp) 60 mcg WEEKLYHS 05/27/18 21:00 Dextrose (Dextrose 50%-Water Syringe) 25 gm 1X ONCE 05/20/18 09:45 05/20/18 12:12 DC Diphenhydramine HCl (Benadryl) 25 mg 1X PRN PRN 05/21/18 08:15 05/22/18 08:14 Docusate Sodium (Colace) 100 mg DAILY 05/20/18 09:00 Fentanyl Citrate (Fentanyl 2ml Vial) 50 mcg PRN Q2HR PRN 05/20/18 12:15 05/21/18 09:28 50 MCG Info (PHARMACY MONITORING -- do not chart) 1 each PRN DAILY PRN 05/21/18 08:15 Insulin Human Regular (HumuLIN R VIAL) 10 unit 1X ONCE 05/20/18 09:45 05/20/18 12:12 DC Ondansetron HCl (Zofran Odt) 8 mg Q8HRS 05/19/18 22:00 05/20/18 06:27 8 MG Ondansetron HCl (Zofran) 4 mg PRN Q8HRS PRN 05/19/18 19:45 05/20/18 19:44 DC 05/19/18 23:11 4 MG Oxycodone/ Acetaminophen (Percocet 10/325) 1 tab PRN QID PRN 05/19/18 22:45 05/20/18 18:18 1 TAB Oxycodone/ Acetaminophen (Percocet 5/325) 1 tab PRN Q4HRS PRN 05/20/18 12:15 Polyethylene Glycol (miraLAX PACKET) 17 gm BID 05/20/18 09:00 Senna/Docusate Sodium (Senna Plus) 2 tab DAILY 05/20/18 09:00 Sevelamer Carbonate (Renvela) 800 mg QIDACHS 05/20/18 07:30 05/20/18 21:17 800 MG Sodium Monofluorophosphate (Fleet Adult) 133 ml PRN DAILY PRN 05/19/18 22:15 Sodium Polystyrene Sulfonate (Kayexalate) 15 gm 1X ONCE 05/20/18 09:45 05/20/18 12:12 DC Sodium Chloride 1,000 ml @ 400 mls/hr Q2H30M PRN 05/21/18 08:12 05/21/18 20:11 Lab Laboratory Tests Test 05/21/18 03:10 White Blood Count 4.3 x10^3/uL (4.0-11.0) Red Blood Count 2.46 x10^6/uL (3.50-5.40) Hemoglobin 7.7 g/dL (12.0-15.5) Hematocrit 22.7 % (36.0-47.0) Mean Corpuscular Volume 92 fL (79-100) Mean Corpuscular Hemoglobin 32 pg (25-35) Mean Corpuscular Hemoglobin Concent 34 g/dL (31-37) Red Cell Distribution Width 17.1 % (11.5-14.5) Platelet Count 102 x10^3/uL (140-400) Sodium Level 137 mmol/L (136-145) Potassium Level 4.6 mmol/L (3.5-5.1) Chloride Level 97 mmol/L (98-107) Carbon Dioxide Level 26 mmol/L (21-32) Anion Gap 14 (6-14) Blood Urea Nitrogen 71 mg/dL (7-20) Creatinine 14.2 mg/dL (0.6-1.0) Estimated GFR (Cockcroft-Gault) 2.9 Glucose Level 111 mg/dL (70-99) Calcium Level 7.8 mg/dL (8.5-10.1) Results All relevant outside records, renal labs, imaging studies, telemetry/EKG's were reviewed. SOPHIE RICHARDSON MD May 21, 2018 10:50
--- NOTE | 2018-05-21 11:01 | PDOC ---
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 Hawkins was seen on HD today. Patient has no new complaints. Discussed with nurse. Hgb elevated at 7.7 s/p PRBC. Nephrology following. Vitals Vitals Vital Signs Date Time Temp Pulse Resp B/P (MAP) Pulse Ox O2 Delivery O2 Flow Rate FiO2 05/21/18 09:28 94 Room Air 05/21/18 07:00 98.1 81 14 143/71 (95) 98.1 Physical Exam General: Alert, Oriented X3, Cooperative, No acute distress Heart: Regular rate, Normal S1, Normal S2 Lungs: Clear, Wheezing Abdomen: Normal bowel sounds, Soft, No tenderness Extremities: No clubbing, No cyanosis Skin: No rashes, No breakdown, No significant lesion Labs LABS Laboratory Tests Test 05/21/18 03:10 White Blood Count 4.3 x10^3/uL (4.0-11.0) Red Blood Count 2.46 x10^6/uL (3.50-5.40) Hemoglobin 7.7 g/dL (12.0-15.5) Hematocrit 22.7 % (36.0-47.0) Mean Corpuscular Volume 92 fL (79-100) Mean Corpuscular Hemoglobin 32 pg (25-35) Mean Corpuscular Hemoglobin Concent 34 g/dL (31-37) Red Cell Distribution Width 17.1 % (11.5-14.5) Platelet Count 102 x10^3/uL (140-400) Sodium Level 137 mmol/L (136-145) Potassium Level 4.6 mmol/L (3.5-5.1) Chloride Level 97 mmol/L (98-107) Carbon Dioxide Level 26 mmol/L (21-32) Anion Gap 14 (6-14) Blood Urea Nitrogen 71 mg/dL (7-20) Creatinine 14.2 mg/dL (0.6-1.0) Estimated GFR (Cockcroft-Gault) 2.9 Glucose Level 111 mg/dL (70-99) Calcium Level 7.8 mg/dL (8.5-10.1) Review of Systems Review of Systems Denies chest pain Denies shortness of breath Assessment and Plan Assessmemt and Plan Problems Medical Problems: (1) Anemia Status: Acute (2) Hyperkalemia Status: Acute Assessment: PCKD on dialysis ESRD Monday noncompliance-missed 7 days worth Stool impaction on abdominal CT Hyperkalemia secondary to missed dialysis RT AV fistula 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 Labs Laboratory Tests Test 05/19/18 17:00 05/19/18 17:02 05/20/18 03:00 05/21/18 03:10 White Blood Count 5.5 x10^3/uL (4.0-11.0) 4.9 x10^3/uL (4.0-11.0) 4.3 x10^3/uL (4.0-11.0) Red Blood Count 1.98 x10^6/uL (3.50-5.40) 2.13 x10^6/uL (3.50-5.40) 2.46 x10^6/uL (3.50-5.40) Hemoglobin 6.2 g/dL (12.0-15.5) 6.9 g/dL (12.0-15.5) 7.7 g/dL (12.0-15.5) Hematocrit 18.8 % (36.0-47.0) 20.4 % (36.0-47.0) 22.7 % (36.0-47.0) Mean Corpuscular Volume 95 fL (79-100) 96 fL (79-100) 92 fL (79-100) Mean Corpuscular Hemoglobin 31 pg (25-35) 33 pg (25-35) 32 pg (25-35) Mean Corpuscular Hemoglobin Concent 33 g/dL (31-37) 34 g/dL (31-37) 34 g/dL (31-37) Red Cell Distribution Width 16.8 % (11.5-14.5) 16.5 % (11.5-14.5) 17.1 % (11.5-14.5) Platelet Count 127 x10^3/uL (140-400) 123 x10^3/uL (140-400) 102 x10^3/uL (140-400) Neutrophils (%) (Auto) 69 % (31-73) 68 % (31-73) Lymphocytes (%) (Auto) 19 % (24-48) 20 % (24-48) Monocytes (%) (Auto) 6 % (0-9) 7 % (0-9) Eosinophils (%) (Auto) 5 % (0-3) 5 % (0-3) Basophils (%) (Auto) 1 % (0-3) 1 % (0-3) Neutrophils # (Auto) 3.8 x10^3uL (1.8-7.7) 3.3 x10^3uL (1.8-7.7) Lymphocytes # (Auto) 1.1 x10^3/uL (1.0-4.8) 1.0 x10^3/uL (1.0-4.8) Monocytes # (Auto) 0.3 x10^3/uL (0.0-1.1) 0.3 x10^3/uL (0.0-1.1) Eosinophils # (Auto) 0.3 x10^3/uL (0.0-0.7) 0.2 x10^3/uL (0.0-0.7) Basophils # (Auto) 0.0 x10^3/uL (0.0-0.2) 0.0 x10^3/uL (0.0-0.2) Sodium Level 138 mmol/L (136-145) 137 mmol/L (136-145) 137 mmol/L (136-145) Potassium Level 5.6 mmol/L (3.5-5.1) 5.9 mmol/L (3.5-5.1) 4.6 mmol/L (3.5-5.1) Chloride Level 97 mmol/L (98-107) 95 mmol/L (98-107) 97 mmol/L (98-107) Carbon Dioxide Level 22 mmol/L (21-32) 19 mmol/L (21-32) 26 mmol/L (21-32) Anion Gap 19 (6-14) 23 (6-14) 14 (6-14) Blood Urea Nitrogen 116 mg/dL (7-20) 121 mg/dL (7-20) 71 mg/dL (7-20) Creatinine 21.0 mg/dL (0.6-1.0) 20.7 mg/dL (0.6-1.0) 14.2 mg/dL (0.6-1.0) Estimated GFR (Cockcroft-Gault) 1.9 1.9 2.9 BUN/Creatinine Ratio 6 (6-20) Glucose Level 92 mg/dL (70-99) 155 mg/dL (70-99) 111 mg/dL (70-99) Calcium Level 7.4 mg/dL (8.5-10.1) 7.2 mg/dL (8.5-10.1) 7.8 mg/dL (8.5-10.1) Total Bilirubin 0.5 mg/dL (0.2-1.0) Aspartate Amino Transf (AST/SGOT) 11 U/L (15-37) Alanine Aminotransferase (ALT/SGPT) 7 U/L (14-59) Alkaline Phosphatase 136 U/L (46-116) Total Protein 7.6 g/dL (6.4-8.2) Albumin 2.8 g/dL (3.4-5.0) Albumin/Globulin Ratio 0.6 (1.0-1.7) Lipase 54 U/L (73-393) Urine Collection Type Unknown Urine Color Yellow Urine Clarity Cloudy Urine pH 8.0 Urine Specific [place] 1.010 Urine Protein 100 mg/dL (NEG-TRACE) Urine Glucose (UA) 100 mg/dL (NEG) Urine Ketones (Stick) Negative mg/dL (NEG) Urine Blood Large (NEG) Urine Nitrite Negative (NEG) Urine Bilirubin Negative (NEG) Urine Urobilinogen Dipstick 0.2 mg/dL (0.2 mg/dL) Urine Leukocyte Esterase Trace (NEG) Urine RBC >40 /HPF (0-2) Urine WBC 1-4 /HPF (0-4) Urine Squamous Epithelial Cells Many /LPF Urine Bacteria Few /HPF (0-FEW) Laboratory Tests Test 05/21/18 03:10 White Blood Count 4.3 x10^3/uL (4.0-11.0) Red Blood Count 2.46 x10^6/uL (3.50-5.40) Hemoglobin 7.7 g/dL (12.0-15.5) Hematocrit 22.7 % (36.0-47.0) Mean Corpuscular Volume 92 fL (79-100) Mean Corpuscular Hemoglobin 32 pg (25-35) Mean Corpuscular Hemoglobin Concent 34 g/dL (31-37) Red Cell Distribution Width 17.1 % (11.5-14.5) Platelet Count 102 x10^3/uL (140-400) Sodium Level 137 mmol/L (136-145) Potassium Level 4.6 mmol/L (3.5-5.1) Chloride Level 97 mmol/L (98-107) Carbon Dioxide Level 26 mmol/L (21-32) Anion Gap 14 (6-14) Blood Urea Nitrogen 71 mg/dL (7-20) Creatinine 14.2 mg/dL (0.6-1.0) Estimated GFR (Cockcroft-Gault) 2.9 Glucose Level 111 mg/dL (70-99) Calcium Level 7.8 mg/dL (8.5-10.1) Medications Current Medications Fentanyl Citrate (Fentanyl 2ml Vial) 50 mcg 1X ONCE IV Last administered on at 17:18; Start 05/19/18 at 17:00; Stop 05/19/18 at 17:01; Status DC Ondansetron HCl (Zofran) 4 mg 1X ONCE IV Last administered on 05/19/18at 17:16 ; Start 05/19/18 at 17:00; Stop 05/19/18 at 17:01; Status DC Fentanyl Citrate (Fentanyl 2ml Vial) 50 mcg 1X ONCE IV Last administered on at 20:17; Start 05/19/18 at 18:15; Stop 05/19/18 at 18:16; Status DC Sodium Polystyrene Sulfonate (Kayexalate) 30 gm 1X ONCE PO ; Start 05/19/18 at 18:30; Stop 05/19/18 at 18:31; Status DC Ondansetron HCl (Zofran) 4 mg PRN Q8HRS PRN IV NAUSEA/VOMITING Last administered on 05/19/18at 23:11; Start 05/19/18 at 19:45; Stop 05/20/18 at 19:44 ; Status DC Fentanyl Citrate (Fentanyl 2ml Vial) 50 mcg PRN Q1HR PRN IV PAIN Last administered on 05/20/18at 11:20; Start 05/19/18 at 19:45; Stop 05/20/18 at 12:18 ; Status DC Acetaminophen (Tylenol) 650 mg PRN Q4HRS PRN PO FEVER; Start 05/19/18 at 19:45 ; Stop 05/20/18 at 19:44; Status DC Amlodipine Besylate (Norvasc) 5 mg BID PO Last administered on 05/20/18at 21:18 ; Start 05/19/18 at 22:00 Bupropion HCl (Wellbutrin Sr) 150 mg DAILY PO Last administered on 05/20/18at 11 :18; Start 05/20/18 at 09:00 Cinacalcet (Sensipar) 30 mg DAILY PO Last administered on 05/20/18 11:18; Start 05/20/18 at 09:00 Clonidine HCl (Catapres) 0.2 mg BID PO Last administered on 05/20/18at 21:18; Start 05/19/18 at 22:00 Diphenhydramine HCl (Benadryl) 25 mg PRN QHS PRN PO ALLERGIES; Start 05/19/18 at 21:45 Docusate Sodium (Colace) 100 mg DAILY PO ; Start 05/20/18 at 09:00 Oxycodone/ Acetaminophen (Percocet 10/325) 2 tab PRN QID PRN PO SEVERE PAIN; Start 05/19/18 at 21:45; Stop 05/19/18 at 22:31; Status DC Sevelamer Carbonate (Renvela) 800 mg QIDACHS PO Last administered on 05/20/18at 21:17; Start 05/20/18 at 07:30 Carvedilol (Coreg) 25 mg BIDWMEALS PO Last administered on 05/20/18at 16:41; Start 05/19/18 at 22:00 Ondansetron HCl (Zofran Odt) 8 mg Q8HRS PO Last administered on 05/20/18at 06:27 ; Start 05/19/18 at 22:00 Polyethylene Glycol (miraLAX PACKET) 17 gm PRN DAILY PRN PO CONSTIPATION 1ST CHOICE; Start 05/20/18 at 09:00; Stop 05/20/18 at 09:00; Status DC Polyethylene Glycol (miraLAX PACKET) 17 gm BID PO ; Start 05/20/18 at 09:00 Senna/Docusate Sodium (Senna Plus) 2 tab DAILY PO ; Start 05/20/18 at 09:00 Sodium Monofluorophosphate (Fleet Adult) 133 ml PRN DAILY PRN [place] CONSTIPATION 2ND CHOICE; Start 05/19/18 at 22:15 Bisacodyl (Dulcolax Tab) 5 mg PRN DAILY PRN PO CONSTIPATION 1ST CHOICE; Start 05/19/18 at 22:15 Oxycodone/ Acetaminophen (Percocet 10/325) 1 tab PRN QID PRN PO SEVERE PAIN Last administered on 05/20/18at 18:18; Start 05/19/18 at 22:45 Sodium Chloride 1,000 ml @ 1,000 mls/hr Q1H PRN IV hypotension; Start 05/20/18 at 07:55; Stop 05/20/18 at 13:54; Status DC Diphenhydramine HCl (Benadryl) 25 mg 1X PRN PRN IV ITCHING; Start 05/20/18 at 08:00; Stop 05/20/18 at 19:00; Status DC Sodium Chloride 1,000 ml @ 400 mls/hr Q2H30M PRN IV PATENCY; Start 05/20/18 at 07:55; Stop 05/20/18 at 19:54; Status DC Info (PHARMACY MONITORING -- do not chart) 1 each PRN DAILY PRN MC SEE COMMENTS ; Start 05/20/18 at 08:00; Stop 05/21/18 at 08:18; Status DC Info (PHARMACY MONITORING -- do not chart) 1 each PRN DAILY PRN MC SEE COMMENTS ; Start 05/20/18 at 08:00; Status UNV Dextrose (Dextrose 50%-Water Syringe) 25 gm 1X ONCE IV ; Start 05/20/18 at 09: 45; Stop 05/20/18 at 12:12; Status DC Insulin Human Regular (HumuLIN R VIAL) 10 unit 1X ONCE IV ; Start 05/20/18 at 09:45; Stop 05/20/18 at 12:12; Status DC Sodium Polystyrene Sulfonate (Kayexalate) 15 gm 1X ONCE PO ; Start 05/20/18 at 09:45; Stop 05/20/18 at 12:12; Status DC Calcium Gluconate (Calcium Gluconate) 1,000 mg 1X ONCE IVP ; Start 05/20/18 at 09:45; Stop 05/20/18 at 09:47; Status DC Darbepoetin Howard (Aranesp) 60 mcg 1X ONCE SQ Last administered on 05/20/18at 12 :40; Start 05/20/18 at 12:00; Stop 05/20/18 at 12:01; Status DC Darbepoetin Howard (Aranesp) 60 mcg WEEKLYHS SQ ; Start 05/27/18 at 21:00 Oxycodone/ Acetaminophen (Percocet 5/325) 1 tab PRN Q4HRS PRN PO PAIN MODERATE TO SEVERE; Start 05/20/18 at 12:15 Fentanyl Citrate (Fentanyl 2ml Vial) 50 mcg PRN Q2HR PRN IV PAIN Last administered on 05/21/18at 09:28; Start 05/20/18 at 12:15 Sodium Chloride 1,000 ml @ 1,000 mls/hr Q1H PRN IV hypotension; Start 05/21/18 at 08:12; Stop 05/21/18 at 14:11 Diphenhydramine HCl (Benadryl) 25 mg 1X PRN PRN IV ITCHING; Start 05/21/18 at 08:15; Stop 05/22/18 at 08:14 Diphenhydramine HCl (Benadryl) 25 mg 1X PRN PRN IV ITCHING; Start 05/21/18 at 08:15; Stop 05/22/18 at 08:14 Sodium Chloride 1,000 ml @ 400 mls/hr Q2H30M PRN IV PATENCY; Start 05/21/18 at 08:12; Stop 05/21/18 at 20:11 Info (PHARMACY MONITORING -- do not chart) 1 each PRN DAILY PRN MC SEE COMMENTS ; Start 05/21/18 at 08:15 Active Scripts Active Percocet 10-325 Mg Tablet (Oxycodone/Acetaminophen) 1 Each Tablet 2 Tab PO QID PRN Oxycodone Hcl Immed.release (Oxycodone Hcl) 10 Mg Tablet 1 Tab PO BID Oxycodone Hcl Immed.release (Oxycodone Hcl) 10 Mg Tablet 1 Tab PO BID Zofran Odt (Ondansetron) 8 Mg Tab.rapdis 1 Tab PO Q8HRS Colace (Docusate Sodium) 100 Mg Capsule 100 Mg PO DAILY Reported Polyethylene Glycol 3350 255 Gm Powder 17 Gm PO PRN Benadryl (Diphenhydramine Hcl) 25 Mg Capsule 1 Cap PO QHS PRN Sensipar (Cinacalcet Hcl) 30 Mg Tablet 1 Tab PO DAILY Zofran (Ondansetron Hcl) 8 Mg Tablet 8 Mg PO PRN Renvela (Sevelamer Carbonate) 800 Mg Tablet 4 Tab PO PRN PRN Wellbutrin Xl (Bupropion Hcl) 150 Mg Tab.er.24h 1 Tab PO DAILY Clonidine Hcl 0.2 Mg Tablet 0.2 Mg PO BID Amlodipine Besylate 5 Mg Tablet 5 Mg PO BID Carvedilol 25 Mg Tablet 25 Mg PO BIDWMEALS Renvela (Sevelamer Carbonate) 800 Mg Tablet 800 Mg PO QID Wellbutrin Sr (Bupropion Hcl) 150 Mg Tablet.er 150 Mg PO DAILY Vitals/I & O Vital Sign - Last 24 Hours 05/20/18 05/20/18 05/20/18 05/20/18 11:00 11:18 11:18 11:18 Temp 97.9 97.9 Pulse 65 65 65 65 Resp 16 B/P (MAP) 155/77 (103) 155/77 155/77 155/77 Pulse Ox 99 O2 Delivery Room Air 05/20/18 05/20/18 05/20/18 05/20/18 11:20 11:50 12:40 13:49 O2 Delivery Room Air Room Air Room Air Room Air 05/20/18 05/20/18 05/20/18 05/20/18 15:00 16:41 16:41 18:18 Temp 97.1 97.1 Pulse 72 72 Resp 16 B/P (MAP) 161/87 (111) 161/87 Pulse Ox 98 O2 Delivery Room Air Room Air Room Air 05/20/18 05/20/18 05/20/18 05/20/18 19:00 19:30 19:30 20:05 Temp 98.2 98.2 Pulse 61 Resp 16 B/P (MAP) 146/84 (104) Pulse Ox 97 O2 Delivery Room Air Room Air Room Air Room Air 05/20/18 05/20/18 05/20/18 05/20/18 21:18 21:18 21:44 23:00 Temp 98.8 98.8 Pulse 61 61 70 Resp 16 B/P (MAP) 146/84 146/84 137/79 (98) Pulse Ox 100 O2 Delivery Room Air Room Air 05/20/18 05/21/18 05/21/18 05/21/18 23:55 03:00 03:56 04:26 Temp 98.1 98.1 Pulse 65 Resp 16 B/P (MAP) 135/78 (97) Pulse Ox 97 O2 Delivery Room Air Room Air Room Air Room Air 05/21/18 05/21/18 05/21/18 06:45 07:00 09:28 Temp 98.1 98.1 Pulse 81 Resp 14 B/P (MAP) 143/71 (95) Pulse Ox 94 94 O2 Delivery Room Air Room Air Room Air Intake and Output 05/20/18 05/20/18 05/21/18 14:59 22:59 06:59 Intake Total 2 ml Balance 2 ml JAYLAN MCCRAY III DO May 21, 2018 11:01
[2018-05-21] MEDS: SEVELAMER CARBONATE 800 MG TABLET. PO SCH ×3 (11:30→14:51)
--- NOTE | 2018-05-21 12:41 | NUR ---
SS following for discharge planning. SS reviewed pt chart. Pt is from home with spouse and is currently on room air. No discharge needs noted at this time. SS will continue to follow for pending discharge needs.
[2018-05-21] MEDS: buPROPion SR 150 MG TABLET.SA PO SCH (13:54)
[2018-05-21] MEDS: cloNIDine HCL 0.2 MG TABLET PO SCH (13:54)
[2018-05-21] MEDS: CINACALCET HCL 30 MG TABLET PO SCH (13:54)
[2018-05-21] MEDS: DOCUSATE SODIUM 100 MG CAPSULE. PO SCH (13:55)
[2018-05-21] MEDS: SENNOSIDES/DOCUSATE 8.6/50MG TABLET. PO SCH (13:55)
[2018-05-21] MEDS: amLODIPine BESYLATE 5 MG TABLET PO SCH (13:56)
[2018-05-21] MEDS: CARVEDILOL 12.5 MG TABLET. PO SCH ×2 (13:56→14:50)
[2018-05-21 14:30] VITALS: BP 174/86
--- NOTE | 2018-05-21 17:00 | NUR ---
Pt was given all discharge instructions, follow up info, and new teaching. Iv removed. No tele. Pt is stable. Will follow up with regular dialysis center on same schedule of MWF. Pt is non-compliant and states she sometimes "doesn't feel like going". Pt's significant other at bedside during discharge. Pt upset because she isn't getting pain script for home. Pt left at 1702. Will follow up with primary for pain medicine. All belongings left with pt at time of discharge. Pt was escorted via wheelchair by hospital [employer] to vehicle. Pt is not driving, her bf will be driving her home.
[2018-05-27] MEDS ORDERED: DARBEPOETIN ALFA 60 MCG/0.3 ML DISP.SYRIN. SQ SCH (21:00)
== END 2018-05-21 17:02 | disposition home or self-care (01) | DRG 682 ==
LOC: ER 16:31 → 4 NORTH 18:20
PROVIDERS: ADMIT Internal Medicine; ATTEND Internal Medicine
PROC: 30233N1 Transfusion of Nonautologous Red Blood Cells into Peripheral Vein, Percutaneous Approach (ICD-10-PCS; principal; 2018-05-20)
PROC: 5A1D70Z Performance of Urinary Filtration, Intermittent, Less than 6 Hours Per Day (ICD-10-PCS; 2018-05-20)
PROC: 5A1D70Z Performance of Urinary Filtration, Intermittent, Less than 6 Hours Per Day (ICD-10-PCS; 2018-05-21)
DX: I12.0 Hypertensive chronic kidney disease with stage 5 chronic kidney disease or end stage renal disease (principal); E43 Unspecified severe protein-calorie malnutrition; N18.6 End stage renal disease; Q61.2 Polycystic kidney, adult type; K52.9 Noninfective gastroenteritis and colitis, unspecified; E87.5 Hyperkalemia; E66.9 Obesity, unspecified; Z68.32 Body mass index [BMI] 32.0-32.9, adult; D63.1 Anemia in chronic kidney disease; E28.2 Polycystic ovarian syndrome; G89.29 Other chronic pain; K59.00 Constipation, unspecified; R31.29 Other microscopic hematuria; Z91.19 Patient's noncompliance with other medical treatment and regimen; Z99.2 Dependence on renal dialysis; E21.3 Hyperparathyroidism, unspecified; F12.90 Cannabis use, unspecified, uncomplicated; F32.9 Major depressive disorder, single episode, unspecified; M54.5 Low back pain; Z88.8 Allergy status to other drugs, medicaments and biological substances; Z79.899 Other long term (current) drug therapy; Z68.28 Body mass index [BMI] 28.0-28.9, adult
CPT/HCPCS: 36415; 74176; 80048; 80053; 81001; 83690; 85025; 85027; 86850; 86900; 86901; 86920; 87086; 93005; 96374; 96375; J0881; J2405; J3010; P9016; Q0162; 99285-25

== ENCOUNTER 2018-10-06 11:05 | Emergency (ER) | payer SELFPAY ==
[~2018-10-06] VITALS: Ht 172.7 cm; Wt 84.8 kg
[2018-10-06 11:15] VITALS: BP 183/97
[2018-10-06] MEDS ORDERED: OXYC5CAP PO (11:32)
--- NOTE | 2018-10-06 11:32 | PHYS DOC ---
Past Medical History Past Medical History: Renal Failure Additional Past Medical Histor: POLYSYCTIC KIDNEY DISEASE, chronic back pain, dialysis Past Surgical History: Cholecystectomy, , Other Additional Past Surgical Histo: DIALYSIS FISTULA R. 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 Patient ran out of her pain medication, she would like to have some pain medication UNTIL SHE CAN see her doctor next week. She denies any injury, no fever, no recent weight loss. Tyrell patel is scheduled to see an ORTHOPEDIC DOCTOR For her hip PROBLEM. Review of Systems Review of Systems Constitutional: Denies fever or chills [] Eyes: Denies change in visual acuity, redness, or eye pain [] HENT: Denies nasal congestion or sore throat [] Respiratory: Denies cough or shortness of breath [] Cardiovascular: No additional information not addressed in HPI [] GI: Denies abdominal pain, nausea, vomiting, bloody stools or diarrhea [] : Denies dysuria or hematuria [] Musculoskeletal: Denies back pain. POSITIVE FOR RIGHT SIDE HIP PAIN. Integument: Denies rash or skin lesions [] Neurologic: Denies headache, focal weakness or sensory changes [] Endocrine: Denies polyuria or polydipsia [] All other systems were reviewed and found to be within normal limits, except as documented in this note. Allergies Allergies Allergies Coded Allergies Type Severity Reaction Last Updated Verified Cephalosporins Allergy Intermediate 02/08/13 Yes cephalexin Allergy Intermediate 04/28/18 Yes iron Allergy Intermediate 02/08/13 Yes tramadol Allergy Intermediate 02/08/13 Yes Physical Exam Physical Exam Constitutional: Well developed, well nourished, no acute distress, non-toxic appearance. [] HENT: Normocephalic, atraumatic, bilateral external ears normal, oropharynx moist, no oral exudates, nose normal. [] Eyes: PERRLA, EOMI, conjunctiva normal, no discharge. [] Neck: Normal range of motion, no tenderness, supple, no stridor. [] Cardiovascular:Heart rate regular rhythm, no murmur [] Lungs & Thorax: Bilateral breath sounds clear to auscultation [] Abdomen: Bowel sounds normal, soft, no tenderness, no masses, no pulsatile masses. [] Skin: Warm, dry, no erythema, no rash. [] Back: No tenderness, no CVA tenderness. [] Extremities: There is a tender baseball size round mass on right lateral hip area. No redness, no sign of infection. Neurologic: Alert and oriented X 3, normal motor function, normal sensory function, no focal deficits noted. [] Psychologic: Affect normal, judgement normal, mood normal. [] Current Patient Data Vital Signs Vital Signs Date Time Temp Pulse Resp B/P (MAP) Pulse Ox O2 Delivery O2 Flow Rate FiO2 10/06/18 11:15 98.5 91 17 183/97 (125) 100 Room Air 98.5 EKG EKG [] Radiology/Procedures Radiology/Procedures [] Course & Med Decision Making Course & Med Decision Making Pertinent Labs and Imaging studies reviewed. (See chart for details) [] Dragon Disclaimer Dragon Disclaimer This electronic medical record was generated, in whole or in part, using a voice recognition dictation system. Departure Departure Impression: Primary Impression: Right hip pain Additional Impression: Medication refill Disposition: 01 HOME, SELF-CARE Condition: STABLE Referrals: NON,STAFF (PCP) FOLLOW UP WITH YOUR DOCTOR NEXT WEEK. Patient Instructions: Chronic Pain, Medication Refill, Emergency Department Scripts Oxycodone Hcl (OXYCODONE HCL) 5 Mg Capsule 5 MG PO PRN Q6HRS PRN for PAIN, #15 TAB 0 Refills Prov: YAEL CLEMENTS DO 10/06/18 Problem Qualifiers YEAL CLEMENTS DO Oct 06, 2018 11:32
== END 2018-10-06 11:42 | disposition home or self-care (01) ==
LOC: ER 11:05
DX: M25.551 Pain in right hip (principal); Z76.0 Encounter for issue of repeat prescription; G89.29 Other chronic pain; N19 Unspecified kidney failure; Z99.2 Dependence on renal dialysis; Z90.49 Acquired absence of other specified parts of digestive tract; Z88.1 Allergy status to other antibiotic agents; Z88.6 Allergy status to analgesic agent; Z88.8 Allergy status to other drugs, medicaments and biological substances
CPT/HCPCS: 99284

== ENCOUNTER 2018-11-09 10:16 | Emergency (ER) | payer MEDICARE ==
[~2018-11-09] VITALS: Ht 172.7 cm; Wt 78.9 kg
[~2018-11-09 10:16] MED LIST changes: +OXYC5CAP PO
[2018-11-09 10:29] VITALS: BP 218/116
[2018-11-09] MEDS ORDERED: oxyCODONE IR 5 MG TABLET PO ONE (10:30)
[2018-11-09] MEDS ORDERED: OXYC30TA21 PO (10:35)
--- NOTE | 2018-11-09 10:35 | PHYS DOC ---
Past Medical History Past Medical History: Cancer, Renal Failure Additional Past Medical Histor: POLYSYCTIC KIDNEY DISEASE, chronic back pain, dialysis, R hip tumor Past Surgical History: Cholecystectomy, , Other Additional Past Surgical Histo: DIALYSIS FISTULA R. ARM, BACK Alcohol Use: None Drug Use: Marijuana Adult General Chief Complaint Chief Complaint: PAIN CONTROL HPI HPI Patient is a 37 year old female with history of end-stage renal disease on dialysis Monday as last dialyzed Monday this week, right hip tumor, who presents to the ED today complaining of a 10 out of 10 right hip pain that is chronic but she unfortunately ran out of her pain medication. Patient moved from a [facility] ED and is trying to establish care locally here. She is an appointment with the pain clinic on November 12, 2018. Denies any new injuries. She is on oxycodone 30 mg 4 times a day. Review of Systems Review of Systems Constitutional: Denies fever or chills [] Musculoskeletal: Reports right hip pain Integument: Denies rash or skin lesions [] Neurologic: Denies headache, focal weakness or sensory changes [] Endocrine: Dialysis patient All other systems were reviewed and found to be within normal limits, except as documented in this note. Allergies Allergies Allergies Coded Allergies Type Severity Reaction Last Updated Verified Cephalosporins Allergy Intermediate 02/08/13 Yes cephalexin Allergy Intermediate 04/28/18 Yes iron Allergy Intermediate 02/08/13 Yes tramadol Allergy Intermediate 02/08/13 Yes Physical Exam Physical Exam Constitutional: Well developed, well nourished, no acute distress, non-toxic appearance. [] Skin: Warm, dry, no erythema, no rash. [] Back: No tenderness, no CVA tenderness. [] Extremities: Right lateral hip with a mass, slight tenderness on palpation of this region, no redness, no warmth no cyanosis, no clubbing, ROM intact, no edema. [] Neurologic: Alert and oriented X 3, normal motor function, normal sensory function, no focal deficits noted. [] Psychologic: Affect normal, judgement normal, mood normal. [] EKG EKG [] Radiology/Procedures Radiology/Procedures [] Course & Med Decision Making Course & Med Decision Making Pertinent Labs and Imaging studies reviewed. (See chart for details) This is a 37-year-old male patient presenting to the ED today with right hip pain that is chronic from a tumor she has on her right hip. She is on oxycodone 30 mg 4 times a day but she ran out of the medications. She is trying to establish care locally. She has an appointment with the pain clinic on November 12, 2018. I gave her a short-term supply of her pain medicine. Diya Disclaimer Diya Disclaimer This electronic medical record was generated, in whole or in part, using a voice recognition dictation system. Departure Departure Impression: Primary Impression: End stage renal disease Additional Impression: Right hip pain Disposition: HOME, SELF-CARE Condition: STABLE Referrals: NON,STAFF (PCP) Follow-up with your own doctor as soon as possible Patient Instructions: Hip Pain Additional Instructions: You were evaluated in the emergency room, we highly recommend you continue following up with the pain clinic and your primary care doctor as soon possible Scripts Oxycodone Hcl (ROXICODONE) 30 Mg Tablet 1 TAB PO Q6HRS, #12 TAB Prov: FAITH HURD APRN 11/09/18 Problem Qualifiers FAITH HURD APRN Nov 09, 2018 10:35
== END 2018-11-09 10:44 | disposition home or self-care (01) ==
LOC: ER 10:16
DX: N18.6 End stage renal disease (principal); Z99.2 Dependence on renal dialysis; G89.29 Other chronic pain; M25.551 Pain in right hip; Z90.49 Acquired absence of other specified parts of digestive tract; Z87.448 Personal history of other diseases of urinary system; Z88.1 Allergy status to other antibiotic agents; Z88.6 Allergy status to analgesic agent; Z88.8 Allergy status to other drugs, medicaments and biological substances
CPT/HCPCS: 99283

== ENCOUNTER 2019-11-21 13:18 | Emergency (ER) | payer MEDICARE, MEDICAID ==
[~2019-11-21 13:18] MED LIST changes: +OXYC30TA21 PO
== END 2019-11-21 14:07 | disposition left against medical advice (07) ==
LOC: ER 13:18
DX: Z98.890 Other specified postprocedural states (principal); Z53.21 Procedure and treatment not carried out due to patient leaving prior to being seen by health care provider